=== PATIENT | female | born 1990 | race Caucasian/White ===

== ENCOUNTER 2019-12-28 16:50 | Inpatient (IN) | payer SELFPAY ==
[2019-12-28 17:18] VITALS: BMI 31.8
[2019-12-28] MEDS: Lactated Ringers 1,000 ML 50 ML IV (17:44)
[2019-12-28 18:14] LABS: Absolute Lymphocyte Count 1.72 X10^3/uL (0.83-4.51); Basophil# 0.02 X10^3/uL; Basophil% 0.2 % (0-1); Eosinophil# 0.02 X10^3/uL; Eosinophils% 0.2 % (0-5); Hematocrit 38.7 % (37-47); Hemoglobin 13.3 g/dL (12.0-15.0); Lymphocyte # 1.72 X10^3/ul (4.0); Lymphocyte % 16.4 % (19-41); Mean Corp Hgb Conc 34.4 g/dL (32-36); Mean Corpuscular Hgb 29.3 pg (27.0-32.0); Mean Corpuscular Volume 85.2 fL (81-99); Monocyte# 0.64 X10^3/uL; Monocyte% 6.1 % (0-10); NRBC Flagged by Analyzer 0 % (0-5); Neutrophil # 8.03 X10^3/uL (2.7-7.7); Neutrophil % 76.8 % (47-70); Platelet Count 262 K/mm3 (150-450); RBC Distribution Width CV 12.9 % (11.6-14.6); RBC Distribution Width SD 39.1 fl (35.1-43.9); Red Blood Count 4.54 M/mm3 (4.2-5.4); White Blood Count 10.5 K/mm3 (4.4-11.0)
[2019-12-28] MEDS: 0.9% Saline Lock 10 ML Syringe IV (19:13)
[2019-12-28] MEDS: Oxytocin 30 units/NS 500 ml 30 UNITS/500 ML IV.SOLN IV (20:05)
[2019-12-29] MEDS: fentaNYL 100 MCG/2 ML Ampul IV (00:24)
[2019-12-29] MEDS: Oxytocin 30 units/NS 500 ml 30 UNITS/500 ML IV.SOLN 334 UNITS IV (00:41)
--- NOTE | 2019-12-29 01:32 | PCM.HP.OB ---
- Problem List (1) Decreased movement Status: Acute (2) heart rate decelerations affecting management of mother Status: Acute History Date of Admission: 12/28/19 Final JOE: 12/30/19 Gestational age: 39 Weeks and 6 Days History of this : This is a 29 year-old, G 3P2 at 39 weeks gestational age presents referred by her photographer motion picture for decreased movement for the last 2 days and audible heart rate deceleration by the photographer motion picture at home. Patient has been 5 cm dilated but denies any regular contractions. She denies any vaginal bleeding or loss of fluid. She has had care by the [facility] photographer motion picture Mare Wilson but did have an ultrasound around 18 to 20 weeks that was normal and showed a boy. She has good dating that has been consistent with her LMP initial visit was at 10 weeks and was consistent with her LMP.. Allergies No Known Allergies Allergy (Verified 12/28/19 17:22) Home Medications: Home Medications Vits [Prenatabs FA] 1 tab PO DAILY 12/28/19 Smoking Status: Never smoker Alcohol: None Number of Fetus(es): 1 NST - FHR Rate Baby A Baseline: 120 Variability:: Moderate Accelerations:: 15 x 15 Decelerations:: None NST Reactive:: Yes FHR Category:: Category I Uterine Activity:: q 3-6 History Past Pregnancies: Past Pregnancies 2 previous term vaginal deliveries home births without complication Labs: Mom's Labs & Results 12/28/19 12/28/19 17:44 17:44 WBC 10.5 RBC 4.54 Hgb 13.3 Hct 38.7 MCV 85.2 MCH 29.3 MCHC 34.4 RDW Std Deviation 39.1 RDW Coeff of Shimon 12.9 Plt Count 262 MPV 10.0 Immature Gran % (Auto) 0.300 Neut % (Auto) 76.8 H Lymph % (Auto) 16.4 L Ford % (Auto) 6.1 Eos % (Auto) 0.2 Baso % (Auto) 0.2 Absolute Neuts (auto) 8.0 H Absolute Lymphs (auto) 1.72 Nucleated RBC % 0 Blood Type O POSITIVE Antibody Screen NEGATIVE Course Did the patient receive Yes care? Labs Blood Type: O RH: POSITIVE HbSAg Not Done Chlamydia Not Done Gonorrhea Not Done HIV/AIDS Not done Group B Strep: Positive Other Lab Procedures/Results/ Pt of Mare Wilson, photographer motion picture. Pt refused NPC labs; Comments: Dr. Woody aware and agreeable to refusal. Current Obstetrical History Gestational Diabetes No Incompetent Cervix No Infertility No IUGR No Macrosomia No Hypertension/Pre-eclampsia No Placenta Previa/Abruption No PTL/PROM No Uterine anomaly No Oligohydramnios No Polyhydramnios No Multiple gestation No Past Medical History Asthma No Diabetes No Hypertension No Heart disease No Mitral valve prolapse No Neurologic/Seizure disorder/ No Migraines Kidney disease No Liver disease No Varicosities No Clotting disorders/Hx of DVT No Thyroid Dysfunction No Other medical diseases No Psychiatric disorders No Major trauma No Abnormal PAP smear No Sleep apnea No Mammogram in the last 2 years No Social History Marital Status: Alleged father Lauro Hx Smoking No Smoking Status Never smoker Expected Infant Delivery Method: Spontaneous Vaginal Review of Systems Constitutional: Denies: Fever, Malaise Eyes: Denies: Blurred vision, Vision Change HEENT: Denies: Head Aches, Visual Changes Cardiovascular: Denies: Chest Pain, Palpitations Respiratory: Denies: Cough, Shortness of Breath, Wheezing Gastrointestinal: Denies: Abdominal Pain, Diarrhea, Nausea, Vomiting Genitourinary: Denies: Dysuria, Hematuria Musculoskeletal: Denies: Joint Pain, Muscle pain Skin: Denies: Lesions, Rash Neurological: Denies: Blurred vision, Focal weakness, Headaches Psychiatric: Denies: Anxiety, Depression Endocrine: Denies: Heat/ Cold Intolerance Hematologic/ Lymphatic: Denies: Easy Bruising, Easy Bleeding Physical Exam General: Alert, Cooperative, No apparent distress HEENT: Atraumatic, Normocephalic. Negative for: Thyromegaly, Lymphadenopathy Cardiovascular: Regular rate Lungs: Normal air movement Abdomen: Soft, Non Tender, Gravid Neurological: Deep Tendon Reflexes 2+/4 and Symmetrical, Neuro grossly intact. Negative for: Clonus CHEMICAL EDUCATOR: Normal external genitalia. Negative for: Vulvar lesions Estimated gestational size: Appropriate for gestational size Presentation: Cephalic Cervix Dilation (cm): 5 Station: -1 Effacement (%): 40 Assessment/Plan All Active Problems Decreased movement (Acute) heart rate decelerations affecting management of mother (Acute) This is a 29 year-old, , at 39 weeks gestational age presents with decreased movement and audible heart rate deceleration Patient presents IOL, plan management for , pitocin/AROM when needed. Pain management: Prefers minimal intervention. GBS positive will give penicillin and then start Pitocin after 2 hours of antibiotics. Management of any complications: None I have reviewed the [facility] and made any clinically relevant updates.
--- NOTE | 2019-12-29 01:37 | PCM.OPRPT ---
Problem List (1) Decreased movement Status: Acute (2) heart rate decelerations affecting management of mother Status: Acute Vaginal Delivery Maternal Presentation: Medically Indicated Induction 29-year-old G3, P2 at 39 weeks 5 days presents for induction of labor secondary to decreased movement and heart rate deceleration. Dating was based off of LMP which was consistent with first visit at 10 weeks of . Method of Induction: Pitocin Medical Reason for Induction: Compromise: list: - Decreased movement and heart rate deceleration Amniotic Membrane Rupture Type: Spontaneous Amniotic Fluid Description: Clear Final JOE: 12/30/19 Gestational age: 39 Weeks and 6 Days Date of Procedure: 12/29/19 Pre-Operative Diagnosis: iol dec Post-Operative Diagnosis: same Surgery/ Procedure Performed: Spontaneous Vaginal Delivery Type of Anesthesia: None Description of Procedure: Patient began pushing on hands and knees and delivered the head in the PARAG presentation. The head was delivered atraumatically and a loose nuchal cord ?1 was identified and easily reduced over the infant's head. After encouraging the anterior and posterior shoulders delivered without complication followed by the rest of the and the was placed on the maternal abdomen. Delayed cord clamping was employed for approximately 60 seconds. Cord was clamped and cut and gentle traction was applied to the cord and the placenta delivered spontan appropriate patient positioning to open up the pelvis eously immediately following it was noted to be intact with three-vessel cord. The perineum and vagina were inspected and noted to have no laceration. EBL was 400 cc. Patient and tolerated delivery well. Presentation: PARAG Placental Delivery Description: Spontaneous Placenta Disposition: [facility] Cord Vessel Description: 3 Vessels Nuchal Cord Compression: With compression Cord Entanglement: Around neck x 1, loose, True Knot(s), - - body cord x 1 Estimated Blood Loss: 400 A gender: Male Episiotomy Description: None Laceration: None Medications given after delivery: IV Pitocin Complications: None Multi Select Codes - Urinary/Genital Urinary/Genital CPT Codes: 11685 Vaginal Delivery [facility]
--- NOTE | 2019-12-29 01:42 | DCINST_ITS ---
Discharge Diet: No Restrictions Discharge Activity: Return to Normal Activity, May not drive while taking narcotic pain medications., May Shower May resume sexual activity in: 4-6 weeks Call your doctor if your incision/area has: Continuous Slow Oozing, Sudden Increased Bleeding, Increased Pain/ Swelling, Increased Redness, Foul Smelling Discharge Additional Instructions: If you experience any of the following, contact your healthcare provider. * Bleeding that soaks a pad every hour for 2 hours * Fever 100.4 or higher * Unrelieved incision or abdominal pain * Swelling, redness, discharge or bleeding from your incision or episiotomy site * Your incision begins to separate * Problems urinating (including inability to urinate or burning while urinating). * Visual changes * Severe headache * Flu-like symptoms * Pain or redness in one of both of your breasts * Pain, warmth, tenderness or swelling in your legs, especially the calf area * Frequent nausea and vomiting * Symptoms of depression or anxiety If you experience any of the following, call 911 or go to the nearest Emergency Room. * Chest pain * Problems breathing * Seizure activity * Partial or complete paralysis of a body part, slurred speech, weakness or drooping of the face, or a sudden inability to walk or hold your balance Allergies/Adverse Reactions: Allergies No Known Allergies Allergy (Verified 12/28/19 17:22) Medications to take at Discharge Vits [Prenatabs FA] 1 tab PO DAILY 12/28/19 Please Follow Up With: Elizabeth Woody MD - [phone] When: Call to make an appointment with your doctor in 6 weeks. If you had elevated Blood pressure or 4th degree laceration you will need to be seen in 2 weeks. Primary Care Physician: Care Physician,No Primary [Primary Care Provider] - Test Results: Test results from this visit will be discussed in further detail at your follow- up appointment, if applicable.
--- NOTE | 2019-12-29 01:42 | PCM.DCVAG ---
Discharge Diet: No Restrictions Discharge Activity: Return to Normal Activity, May not drive while taking narcotic pain medications., May Shower May resume sexual activity in: 4-6 weeks Call your doctor if your incision/area has: Continuous Slow Oozing, Sudden Increased Bleeding, Increased Pain/ Swelling, Increased Redness, Foul Smelling Discharge Additional Instructions: If you experience any of the following, contact your healthcare provider. Bleeding that soaks a pad every hour for 2 hours Fever 100.4 or higher Unrelieved incision or abdominal pain Swelling, redness, discharge or bleeding from your incision or episiotomy site Your incision begins to separate Problems urinating (including inability to urinate or burning while urinating). Visual changes Severe headache Flu-like symptoms Pain or redness in one of both of your breasts Pain, warmth, tenderness or swelling in your legs, especially the calf area Frequent nausea and vomiting Symptoms of depression or anxiety If you experience any of the following, call 911 or go to the nearest Emergency Room. Chest pain Problems breathing Seizure activity Partial or complete paralysis of a body part, slurred speech, weakness or drooping of the face, or a sudden inability to walk or hold your balance Allergies/Adverse Reactions: Allergies No Known Allergies Allergy (Verified 12/28/19 17:22) Medications to take at Discharge Vits [Prenatabs FA] 1 tab PO DAILY 12/28/19 Please Follow Up With: Elizabeth Woody MD - [phone] When: Call to make an appointment with your doctor in 6 weeks. If you had elevated Blood pressure or 4th degree laceration you will need to be seen in 2 weeks. Primary Care Physician: Care Physician,No Primary [Primary Care Provider] - Test Results: Test results from this visit will be discussed in further detail at your follow-up appointment, if applicable.
[2019-12-29] MEDS: Naproxen 250 MG Tablet 500 MG PO ×2 (02:55→10:54)
[2019-12-29] MEDS: 0.9% Saline Lock 10 ML Syringe IV (03:22)
[2019-12-29 04:20] VITALS: BP 118/64; PULSE 73; RESP 20; TEMP 36.3; O2SAT 98
[2019-12-29 08:03] VITALS: BP 115/64; PULSE 73; RESP 16; TEMP 36.6; O2SAT 99
[2019-12-29 08:27] VITALS: BP 113/65; PULSE 83; RESP 16; TEMP 37.1; O2SAT 97
[2019-12-29 09:41] LABS: Hepatitis B Surface Antigen Non-Reactive (Nonreactive); Rubella IgG 112.3 IU/mL
[2019-12-29 12:11] VITALS: BP 115/64; PULSE 73; RESP 16; TEMP 36.6; O2SAT 99
== END 2019-12-29 13:00 | disposition home or self-care (01) | DRG 807 ==
PROVIDERS: Admitting Provider Obstetrics & Gynecology; Referring Provider Obstetrics & Gynecology; Visit Provider Obstetrics & Gynecology
DX: O36.8130 Decreased fetal movements, third trimester, not applicable or unspecified (principal); Z37.0 Single live birth; O76 Abnormality in fetal heart rate and rhythm complicating labor and delivery; Z3A.39 39 weeks gestation of pregnancy; O99.824 Streptococcus B carrier state complicating childbirth; O69.2XX0 Labor and delivery complicated by other cord entanglement, with compression, not applicable or unspecified; O69.81X0 Labor and delivery complicated by cord around neck, without compression, not applicable or unspecified
CPT/HCPCS: 59025; 59050; 85025; 86762; 86850; 86900; 86901; 87340; 99218; J7120; A4216; G0378

== ENCOUNTER 2022-01-21 19:59 | Emergency (ER) | payer OTHER, SELFPAY ==
[2022-01-21 20:00] VITALS: BP 117/75; PULSE 86; RESP 16; TEMP 37; O2SAT 97; BMI 29.2
--- NOTE | 2022-01-21 20:56 | US_ITS ---
STUDY: FIRST TRIMESTER OBSTETRICAL ULTRASOUND REASON FOR EXAM: Female, 31 years old preg and vaginal bleeding -- patient refused quant LMP: 11/24/2021 TECHNIQUE: Transabdominal and endovaginal TECHNICAL QUALITY: Adequate. PRIOR ULTRASOUND: None. FINDINGS: There is no visualization of an intrauterine gestational sac. The uterus measures 10.0 x 8.3 x 5.5 cm. It is retrograded. There is a 7 x 9 x 8 mm fibroid. Thickened endometrium measuring 19 mm with heterogeneity and possible focal fluid. The cervix is closed. The right ovary measures 2.7 x 1.7 x 1.4 cm. There is no right ovarian cyst. There is no visualized right adnexal mass or complex lesion. The left ovary measures 3.8 x 2.2 x 3.0 cm. There is no left ovarian cyst. There is no visualized left adnexal mass or complex lesion. There is no fluid in the cul de sac. US/Init OB < 14Wks US IMPRESSION: No intrauterine gestational sac is identified. There is thickened endometrium with heterogeneity and possible mild focal fluid. Electronically Signed: Hudson Ramos DO at 23:20 EST Reading Location ID and State: [facility] / [place] Tel [phone], Service support ,
--- NOTE | 2022-01-21 20:57 | ED.VIS.FEGU ---
HPI HPI - Female History of Present Illness Chief Complaint: Vag Bld, Preg Informant: patient Pain Pain: Positive for Pelvic Pain Onset: Today Context: Gradual Onset Timing: Intermittent Quality: Positive for Cramping Current Severity: Mild Maximum Severity: Mild Bleeding Issue: Positive for Vaginal bleeding, Passing clots and Passing tissue Onset: Today Timing: Intermittent Current Severity: Mild Maximum Severity: Heavy Associated Symptoms Test: Positive Sexually: Positive for Active Control: No control P: 3 Ab: 0 Narrative Narrative: 31-year-old female G4, P3 Ab0. Think she is somewhere between 8 and 12 weeks . Her blood type is O+. She had no care for this . States that she has had spotting the entire time and then today started having heavier bleeding with clots. At times she would have pelvic pain and other times the pain would resolve. She thinks she may have passed tissue. She was concerned she was having a miscarriage. Denies any dysuria. No fever. Prior similar symptoms: No Recent Illness/Hospitalization: No PFSH PFSH Medical History no medical history no medical history Home Medications vit,[id number] 1 tab PO DAILY 12/28/19 [History Last Taken 12/27/19 18:00 1 tab] Allergy/AdvReac Type Severity Reaction Status Date / Time No Known Allergies Allergy Verified 01/21/22 20:06 Surgical History no surgical history no surgical history Social History Smoking Status: Never smoker ROS ROS ED ROS Narrative Denies. Review of Systems ROS Unobtainable: Denies due to encephalopathy Constitutional Constitutional ED: Denies fever(s) Eyes Eyes: Denies change in vision ENT ENT ED: Denies ear pain Cardiovascular Cardiovascular: Denies chest pain Respiratory/Chest Respiratory/Chest: Denies dyspnea Gastrointestinal Gastrointestinal: Denies abdominal pain Genitourinary Genitourinary ED: Denies dysuria Musculoskeletal Musculoskeletal: Denies myalgias Integumentary Denies rash Neurologic Neurologic: Denies headache(s) Psychiatric Psychiatric: Denies depression Endocrine Endocrinology: Denies polyuria Hematologic/Lymphatic Hematologic/Lymphatic: Denies easy bruising Allergic/Immunologic Allergic/Immunologic ED: Denies urticaria EXAM Physical Exam Narrative Exam Narrative: 31-year-old female no acute distress vital signs stable afebrile. Lungs are clear. Heart regular rhythm. Abdomen soft nondistended normal bowel sounds no peritoneal signs. Minimal discomfort suprapubically. Moving all 4 extremities. Pelvic exam pending. Const Vital Signs: 01/21/22 20:00 01/21/22 22:32 Temperature 98.6 F Temperature Source Temporal Pulse Rate 86 66 Respiratory Rate 16 14 Blood Pressure 117/75 115/78 Blood Pressure Mean 89 90 Pulse Ox 97 98 Oxygen Delivery Method Room Air Room Air Positive well nourished and well developed; Negative for obese, cachectic, contractures or unkempt General Appearance ED: well developed and NAD; Negative for unkempt, cachectic, contractures, odor of alcohol detected or pallor Nutritional Appearance: Negative for cachectic or obese HEENT Reports moist mucous membranes Negative for trauma or tenderness Eyes PERRL and EOMs intact bilaterally General Eye ED: Negative for pale conjunctiva or scleral icterus Neck no lymphadenopathy, supple and no JVD Thyroid: Negative for tender Chest Wall inspection of chest normal and palpation of chest normal Resp normal respiratory effort and clear to auscultation bilaterally Effort and Inspection: Negative for pain with movement Auscultation: Negative for rales, rhonchi or wheezes Cardio regular rate, regular rhythm, S1 normal heart sound, no murmurs and no JVD GI normal to inspection, nondistended, normoactive bowel sounds, soft to palpation, non-tender, non-distended and no masses Auscultation: normoactive bowel sounds Palpation: Negative for tender, guarding or rigid no CVA tenderness Back/Spine no CVA tenderness Extremity normal to inspection and full ROM General Extremety ED: Negative for edema or tenderness General Extremity: Negative for edema Neuro oriented x3 Sensorium / Orientation: alert, oriented to person, oriented to place and oriented to time Motor Exam: strength 5/5 throughout Psych mental status grossly normal Appearance: Negative for unkempt Mood & Affect: Negative for depressed or tearful Skin no rashes or lesions noted and no wounds General Skin Exam: Negative for jaundice or pallor MDM MDM MDM Narrative Medical decision making narrative: 31-year-old G4, P3 Ab0. 8 to 12 weeks . No care. Blood type O+. Concern for miscarriage. Having heavy bleeding today. Wants, pelvic exam, a liter of normal saline and a pelvic ultrasound. Pelvic exam done female nurse present in room. There is only minimal bleeding at this time there is a clot in the cervix. I do not see any tissue. On bimanual exam there is no uterine or adnexal tenderness. We were ordering labs, IV and IV fluids patient did not want any that done she does want the ultrasound. She understands limitations about the studies. She is being taken ultrasound at this time. Repeat exam patient is doing well at 11:19 PM. Her and her do not want to wait for the formal ultrasound read. They were instructed to follow-up as soon as possible with IN PROCESS INSPECTOR physician for further evaluation. If she continues to bleed, increasing pain or fever she needs immediate reevaluation. Tylenol Motrin for pain. Plenty of fluids and rest. Return emergency department if feeling worse. Lab Data Attestation: I reviewed the patient's lab results. Radiography Diagnostic Testing: Transvaginal pelvic ultrasound per the microwave technician shows no intrauterine . No ectopic. Heterogeneous fluid in the uterus. Discharge Plan Triage Chief Complaint: Vag Bld, Preg ED Provider: Ham Petit Dx/Rx/DC Orders Clinical Impression: Abnormal vaginal bleeding, Incomplete miscarriage Instructions: ED MISCARRIAGE Incomplete Prescriptions: No Action vit,[id number] 1 TABLET tablet 1 tab PO DAILY RF: 0 Primary Care Provider: Care Physician,No Primary Referrals: Leon Jeong MD [STAFF PHYSICIAN] - As soon as possible Care Physician,No Primary [Primary Care Provider] - Activity Restrictions/Additional Instructions: Plenty of fluids and rest. This will help replace the blood loss. Motrin and Tylenol for pain. Follow-up with your nurse end worker or Dr. Leon Jeong the IN PROCESS INSPECTOR on-call tonight. We need to make sure that the bleeding slows down. Also that you do not have any retained products that could cause increased bleeding or an infection. Return the emergency department if you are feeling worse or develop a fever or develop increasing pain. You will probably have continued bleeding but that should progressively improve. Disposition Disposition: Home, Self Care
--- NOTE | 2022-01-21 21:11 | ED.RN ---
pt. refuses iv, blood work, states just wants ultrasound and to go home. dr. smith aware.
[2022-01-21 22:32] VITALS: BP 115/78; PULSE 66; RESP 14; O2SAT 98
== END 2022-01-21 23:25 | disposition home or self-care (01) ==
PROVIDERS: Emergency Provider Emergency Medicine; Visit Provider Emergency Medicine
DX: O03.4 Incomplete spontaneous abortion without complication (principal)
CPT/HCPCS: 76801; 99282

== ENCOUNTER 2022-01-29 06:21 | Emergency (ER) | payer OTHER, SELFPAY ==
[2022-01-29 06:21] VITALS: BP 126/77; PULSE 98; RESP 18; TEMP 36.6; O2SAT 100; BMI 24.5
--- NOTE | 2022-01-29 06:46 | US_ITS ---
STUDY: FIRST TRIMESTER OBSTETRICAL ULTRASOUND REASON FOR EXAM: Female, 31 years old pelvic pain and bleeding SCANNED 01/21/22 FOR BLEEDING WITH , SUBSIDED AND STARTED BLEEDING AGAIN WITH CLOTS. PELVIC PAIN AND CRAMPING LMP: November 24, 2021 TECHNIQUE: Transabdominal and Transvaginal TECHNICAL QUALITY: Adequate. PRIOR ULTRASOUND: OB ultrasound dated January 21, 2022 FINDINGS: There is no demonstrated intrauterine gestational sac. There is no demonstrated yolk sac. The placenta is non-visualized. There is no demonstrated embryo ( pole). The uterus measures 11.0 x 6.7 x 5.8 cm. A tiny anterior uterine body intramural fibroid is present measuring 7 mm in diameter. The endometrial echo is hyperechoic and measures 15 mm in thickness. No endometrial fluid is present. The cervix is closed. The right ovary measures 2.5 x 2.4 x 1.8 cm. There is no right ovarian cyst. There is no visualized right adnexal mass or complex lesion. The left ovary measures 2.8 x 2.7 x 1.6 cm. There is no left ovarian cyst. There is no visualized left adnexal mass or complex lesion. There is no fluid in the cul de sac. US/Init OB < 14Wks US IMPRESSION: 1. No demonstrated IUP Electronically Signed: Clint Marcelo MD at 9:07 EDT ,
--- NOTE | 2022-01-29 06:53 | EDS_ITS ---
HPI HPI - Female History of Present Illness Chief Complaint: Vag Bleeding Narrative Narrative: Patient is reported female who was seen a week ago secondary to concern of miscarriage. At that time she had an ultrasound pain which showed no gestational sac with in the uterus. She states that her bleeding started to subside since that visit but then returned over the last day to a heavy flow and she is noted increased lower abdominal pain as well. She states that she is not on blood thinners nor does she have a bleeding disorder. However with her worsening bleeding once again and the lower abdominal pain she was concerned and therefore comes in for evaluation. PFSH PFSH Home Medications vit,[id number] 1 tab PO DAILY 12/28/19 [History Last Taken 12/27/19 18:00 1 tab] tranexamic acid 650 mg PO BID PRN #10 tab 01/29/22 [Rx Last Taken Unknown] Allergy/AdvReac Type Severity Reaction Status Date / Time No Known Allergies Allergy Verified 01/29/22 06:26 Surgical History no surgical history Social History Smoking Status: Never smoker ROS ROS ED Constitutional Constitutional ED: Denies chills or fever(s) ENT ENT ED: Denies sore throat Cardiovascular Cardiovascular: Denies chest pain Respiratory/Chest Respiratory/Chest: Denies cough or dyspnea Gastrointestinal Gastrointestinal: Reports abdominal pain and nausea; Denies diarrhea or vomiting Genitourinary Genitourinary ED: Reports other Details: Positive vaginal bleeding ; Denies dysuria Musculoskeletal Musculoskeletal: Denies myalgias Integumentary Denies rash Neurologic Neurologic: Denies headache(s) Hematologic/Lymphatic Hematologic/Lymphatic: Denies easy bleeding or easy bruising EXAM Physical Exam Const Vital Signs: 01/29/22 06:21 01/29/22 07:23 Temperature 97.9 F 98.0 F Temperature Source Temporal Oral Pulse Rate 98 76 Respiratory Rate 18 18 Blood Pressure 126/77 H 107/68 Blood Pressure Mean 93 81 Pulse Ox 100 100 Oxygen Delivery Method Room Air Room Air Positive well nourished and well developed General Appearance ED: well developed HEENT Reports moist mucous membranes Eyes PERRL and EOMs intact bilaterally General Eye ED: Negative for pale conjunctiva Neck supple Resp normal respiratory effort and clear to auscultation bilaterally Cardio regular rate and regular rhythm GI soft to palpation and non-distended GI Narrative: Patient has a soft nondistended abdomen with pain with palpation diffusely in the lower abdomen without voluntary guarding or rigidity. There is a ventral hernia that is reducible in nature. No pulsatile mass Auscultation: normoactive bowel sounds Palpation: soft Narrative: Patient deferred pelvic exam Extremity normal to inspection Neuro oriented x3 and CN's II-XII intact bilaterally Sensorium / Orientation: alert Psych mental status grossly normal Skin no rashes or lesions noted Skin Narrative: Skin is slightly pale in color but capillary refill is less than 3 seconds MDM MDM MDM Narrative Medical decision making narrative: Patient presented to the ER afebrile with stable vitals. She had a ultrasound done just approximately week ago which showed a fibroid but no products of conception. She reported her bleeding never completely resolved but was improving and then began to have breakthrough bleeding today. Secondary to this breakthrough bleeding I did elect to obtain basic laboratory studies which patient refused to the last visit and repeat an ultrasound. H&H is slightly down at 11 and 30 but this is above transfusion value and the previous value was just above this at 13. She has no signs of acute kidney injury no leukocytosis and stable liver enzymes with no elevated lipase. The patient refused a pelvic exam as she had one last time and states that she feels like she is no longer actively bleeding. Therefore at this time with stable labs no need for transfusion and no persistent bleeding I do not feel she needs to stay in the hospital and can follow-up with [facility] for repeat evaluation I was able to discuss the case with [facility] and they do request that patient have a quantitative hCG value drawn today so they can have a laboratory value to track over the next few weeks. They agree that as she is hemodynamically stable not requiring a transfusion that she can be discharged home and recommend that she have a few TXA tablets in case she has recurrent breakthrough bleeding. Lab Data Attestation: I reviewed the patient's lab results. Labs: Laboratory Results - last 24 hr 01/29/22 01/29/22 01/29/22 06:30 06:30 06:30 WBC 8.1 RBC 3.64 L Hgb 11.2 L Hct 30.0 L MCV 82.4 MCH 30.8 MCHC 37.3 H RDW Std Deviation 36.2 RDW Coeff of Shimon 12.3 Plt Count 336 MPV 9.8 Immature Gran % (Auto) 0.500 Neut % (Auto) 86.3 H Lymph % (Auto) 9.4 L [place] % (Auto) 3.5 Eos % (Auto) 0.2 Baso % (Auto) 0.1 Absolute Neuts (auto) 6.9 Absolute Lymphs (auto) 0.76 L Nucleated RBC % 0 Sodium 138 Potassium 3.6 Chloride 107 Carbon Dioxide 27.0 Anion Gap 4 L BUN 11 Creatinine 0.54 L Estim Creat Clear Calc 170.26 Est GFR (MDRD) Af Amer 169 Est GFR (MDRD) Non-Af 140 BUN/Creatinine Ratio 20.3 H Glucose 113 H Calcium 8.4 L Total Bilirubin 1.50 H Direct Bilirubin 0.26 AST 16 ALT 29 Alkaline Phosphatase 48 Total Protein 7.3 Albumin 3.9 Globulin 3.4 Lipase 125 Urine Color Urine Clarity Urine pH Ur Specific Simpson Urine Protein Urine Glucose (UA) Urine Ketones Urine Occult Blood Urine Nitrite Urine Bilirubin Urine Urobilinogen Ur Leukocyte Esterase Urine RBC Urine WBC Ur Squamous Epith Cells Urine Bacteria Urine Mucus Blood Type O POSITIVE 01/29/22 08:35 WBC RBC Hgb Hct MCV MCH MCHC RDW Std Deviation RDW Coeff of Shimon Plt Count MPV Immature Gran % (Auto) Neut % (Auto) Lymph % (Auto) [place] % (Auto) Eos % (Auto) Baso % (Auto) Absolute Neuts (auto) Absolute Lymphs (auto) Nucleated RBC % Sodium Potassium Chloride Carbon Dioxide Anion Gap BUN Creatinine Estim Creat Clear Calc Est GFR (MDRD) Af Amer Est GFR (MDRD) Non-Af BUN/Creatinine Ratio Glucose Calcium Total Bilirubin Direct Bilirubin AST ALT Alkaline Phosphatase Total Protein Albumin Globulin Lipase Urine Color Yellow Urine Clarity Clear Urine pH 7.0 Ur Specific Simpson 1.005 Urine Protein 30 H Urine Glucose (UA) Normal Urine Ketones Negative Urine Occult Blood 250 H Urine Nitrite Negative Urine Bilirubin Negative Urine Urobilinogen Normal Ur Leukocyte Esterase 100 H Urine RBC 5-10 SEEN Urine WBC 0-5 SEEN Ur Squamous Epith Cells 0-5 SEEN Urine Bacteria 1+ Urine Mucus 0 SEEN Blood Type Radiography Diagnostic Testing: Clinical Impression(s) from Imaging Studies Obstetrics Ultrasound 01/29/22 06:46 IMPRESSION: 1. No demonstrated IUP Electronically Signed: Clint Marcelo MD at 9:07 EDT , Discharge Plan Triage Chief Complaint: Vag Bleeding ED Provider: Arturo Darden Dx/Rx/DC Orders Clinical Impression: DUB (dysfunctional uterine bleeding) Prescriptions: New tranexamic acid 650 mg tablet 650 mg PO BID PRN (Reason: Breakthrough bleeding) Qty: 10 RF: 0 No Action vit,[id number] 1 TABLET tablet 1 tab PO DAILY RF: 0 Primary Care Provider: Hernandez Solano Referrals: Jacklyn Logan MD [STAFF PHYSICIAN] - 5-7 Days Hernandez Solano, PA-C [Primary Care Provider] - Activity Restrictions/Additional Instructions: Please follow-up with [facility] for repeat evaluation and take the medication prescribed if you have any further breakthrough bleeding Disposition Disposition: Home, Self Care
[2022-01-29 07:10] LABS: Absolute Lymphocyte Count 0.76 X10^3/uL (0.83-4.51); Absolute Neutrophil Count 6.9 X10^3/uL (2.0-7.7); Basophil# 0.01 X10^3/uL; Basophil% 0.1 % (0-1); Eosinophil# 0.02 X10^3/uL; Eosinophils% 0.2 % (0-5); Hemoglobin 11.2 g/dL (12.0-15.0); Lymphocyte # 0.76 X10^3/ul (0.83-4.51); Lymphocyte % 9.4 % (19-41); Mean Corp Hgb Conc 37.3 g/dL (32-36); Mean Corpuscular Hgb 30.8 pg (27.0-32.0); Mean Corpuscular Volume 82.4 fL (81-99); Mean Platelet Vol. 9.8 fl (6.2-12.0); Monocyte# 0.28 X10^3/uL; Monocyte% 3.5 % (0-10); NRBC Flagged by Analyzer 0 % (0-5); Neutrophil # 6.94 X10^3/uL (2.7-7.7); Neutrophil % 86.3 % (47-70); Platelet Count 336 K/mm3 (150-450); RBC Distribution Width CV 12.3 % (11.6-14.6); RBC Distribution Width SD 36.2 fl (35.1-43.9); Red Blood Count 3.64 M/mm3 (4.2-5.4); White Blood Count 8.1 K/mm3 (4.4-11.0)
[2022-01-29] MEDS: 0.9% Normal Saline 1,000 ML 999 ML IV (07:12)
[2022-01-29] MEDS: Ondansetron 4 MG/2 ML Vial IV (07:12)
[2022-01-29 07:23] VITALS: BP 107/68; PULSE 76; RESP 18; TEMP 36.7; O2SAT 100
[2022-01-29 07:30] LABS: AST(SGOT) 16 U/L (15-37); Alanine Aminotransfer ALT/SGPT 29 U/L (13-56); Albumin, Serum 3.9 g/dL (3.2-5.0); Alkaline Phosphatase 48 U/L (45-117); Anion Gap 4 (5-15); BUN 11 mg/dL (7-18); BUN/Creat Ratio 20.3 RATIO (10-20); Bilirubin, Direct 0.26 mg/dL (0.00-0.30); Calcium,Total 8.4 mg/dL (8.5-10.1); Chloride 107 mmol/L (98-107); Creatinine, Serum 0.54 mg/dL (0.55-1.02); EST Glomerular Filtration Rate 140 mL/min (>60); Est Glom Filt Rate - Afr Amer 169 mL/min (>60); Estimated Creatinine Clearance 170.26 ml/min; Globulin 3.4 g/dL (2.2-4.2); Glucose 113 mg/dL (74-106); Lipase 125 U/L (73-393); Potassium 3.6 mmol/L (3.5-5.1); Protein, Total 7.3 g/dL (6.4-8.2); Sodium Level 138 mmol/L (136-145)
[2022-01-29 08:44] LABS: Mucous, Urine 0 SEEN /hpf (<or=2+)
[2022-01-29 08:47] LABS: Color, Urine Yellow (Yellow); Glucose, Dipstick Normal (Normal); Ketone-Dipstick Negative (Negative); Leukocyte Esterase-Dipstick 100 /ul (Negative); Nitrite-Dipstick Negative (Negative); Occult Blood-Urine 250 /ul (Negative); Protein-Dipstick 30 mg/dl (Negative); Specific Gravity, Urine 1.005 (1.002-1.030); Urine Bilirubin Dipstick Negative (Negative); Urine Clarity Clear (Clear); Urine Urobilinogen Normal (Normal)
[2022-01-29 08:54] LABS: Bacteria 1+ /hpf (None Seen); Red Blood Cells-Urine 5-10 SEEN /hpf (0-5); Squamous Epithelial Cells - UA 0-5 SEEN /hpf (5-10); White Blood Cells 0-5 SEEN /hpf (0-5)
[2022-01-29 09:00] VITALS: BP 117/74; PULSE 90; RESP 16; TEMP 36.7; O2SAT 100
[2022-01-29] MEDS: Ketorolac 30 MG/ML Syringe IV (09:58)
[2022-01-29 10:00] VITALS: BP 108/59; PULSE 86; RESP 16; TEMP 36.8; O2SAT 100
[2022-01-29 10:46] LABS: hCG Titer Quant., Serum 314 mIU/mL (1-3)
[2022-01-29 11:00] VITALS: BP 136/78; PULSE 66; RESP 16; TEMP 36.7; O2SAT 99
[2022-01-29 11:23] VITALS: BP 136/78; PULSE 68; RESP 16; TEMP 36.7; O2SAT 98
== END 2022-01-29 11:27 | disposition home or self-care (01) ==
PROVIDERS: Emergency Provider Emergency Medicine; PCP Physician Assistant; Visit Provider Emergency Medicine
DX: N93.8 Other specified abnormal uterine and vaginal bleeding (principal)
CPT/HCPCS: 76801; 80048; 80076; 81001; 83690; 84702; 85025; 86900; 86901; 96361; 96374; 96375; 99283; J7040; J2405

== ENCOUNTER 2025-04-25 05:40 | Outpatient (CLI) | payer OTHER, SELFPAY ==
[2025-04-25 05:45] VITALS: BMI 32.5
--- OUTSIDE RECORDS SUMMARY | 2025-04-25 05:46 | XMS RPT_ITS | CCD ---
Author Organization [facility] Care Team Providers Care Product Assembler Name Role Phone Aye Pimentel Primary Care Provider AYE MAZARIEGOS Primary Care Unavailable RHONDA JEFFRIES Referring Unavailable RHONDA JEFFRIES Attending Unavailable RHONDA JEFFRIES Admitting Unavailable PETTY MCBRIDE Attending Unavailable PETTY MCBRIDE Admitting Unavailable Unavailable Primary Care Provider Unavailabl e Medications Current Medications Medication Drug Class(es) Dates Sig (Normalized) Sig (Original) MV-Min-Fe Fum-FA-DHA ( 1 PO) (1 source) MV-Min- Fe Fum-FA-DHA ( 1 PO) Take by mouth. 0 Active Completed/Discontinued Medications Medication Drug Class(es) Dates Sig (Normalized) Sig (Original) acetaminophen 325 mg oral tablet (2 sources) Start: 01-09-2023 End: 01-10-2023 take 1 tablet by mouth every four hours as needed for pain 650 mg, Oral, Every 4 hours PRN, mild pain (1-3), Fever GREATER than 100.5 F (38 C), Starting on Sat01/09/23 at 1411 Maximum dose of acetaminophen is 4000 mg from all sources in 24 hours. calcium chloride 0.0014 meq/ml / potassium chloride 0.004 meq/ml / sodium chloride 0.103 meq/ml / sodium lactate 0.028 meq/ml injectable solution (2 sources) Start: 01-09-2023 End: 01-10-2023 lactated Ringer's infusion cyclobenzaprine hydrochloride 10 mg oral tablet (1 source) Muscle Relaxant Start: 01-09-2023 End: 01-09-2023 Cyclobenzaprine (FLEXERIL) tablet 10 mg 1 ml morphine sulfate 4 mg/ml cartridge (1 source) Opioid Agonist Start: 01-09-2023 End: 01-09-2023 Morphine sulfate (PF) injection 4 mg ondansetron ODT (Zofran-ODT) disintegrating tablet 4 mg (2 sources) Start: 01-09-2023 End: 01-10-2023 take 1 tablet by mouth every eight hours as needed for nausea and vomiting ondansetron ODT (Zofran-ODT) disintegrating tablet 4 mg oxyCODONE hydrochloride 5 mg oral tablet (2 sources) Opioid Agonist Start: 01-09-2023 End: 01-10-2023 take 1 tablet by mouth every six hours as needed for pain and pain oxyCODONE (Roxicodone) immediate release tablet 5 mg vitamin tablet (2 sources) Start: 01-09-2023 End: 01-10-2023 take 1 tablet by mouth once daily 1 tablet, Oral, Daily, First dose on Sat01/09/23 at 1430 5 ml sodium chloride 9 mg/ml injection (6 sources) Start: 01-09-2023 End: 01-10-2023 10 mL, IntraVENous, Every 12 hours scheduled (2 times per day), First dose on Sat01/09/23 at 2100 Start: 01-09-2023 End: 01-10-2023 5-250 mL/hr, IntraVENous, AL N, if patient receiving piggyback infusions and maintenance fluids are not ordered OR KVO fluids to protect IV site / prevent frequent line interruptions/ long duration, Starting on Sat01/09/23 at 1411 For piggyback infusion, administer at same rate as piggyback for a total of 25 mL. Enter 25 mL into dose field and piggyback rate into rate field of order. If piggyback is infusing at a rate less than 100 mL/hr, enter 25 mL into dose field and 100 mL/hr into rate field of order. For KVO fluids, enter rate of 20 mL/hr or less into rate field of order. Start: 01-09-2023 End: 01-10-2023 take 10 mL intravenously once 10 mL, IntraVENous, PRN, line care, Starting on Sat01/09/23 at 1411 After every IV line use tamsulosin hydrochloride 0.4 mg oral capsule (2 sources) alpha-Adrenergic José Manuel Start: 01-09-2023 End: 02-23-2023 take 0.4 mg by mouth once daily 0.4 mg, Oral, Daily, First dose on Sat01/09/23 at 1530 Do not crush, chew, or split. Problems Problem Classification Problem Date Documented Da sheryl Episodic/Chronic Calculus of urinary tract (6 sources) Calculus of kidney; Translations: [Kidney stone] Onset: 01-09-2023 Episodic Spondylosis; intervertebral disc disorders; other back problems (2 sources) Low back pain; Translations: [Lower Back Pain] Onset: 01-09-2023 Episodic Results Test Name Value Interpretation Reference Range Facility Progress Noteon 01-10-2023 Progress Note Pt insisting on leaving at this time. 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 Discharge instructions given to pt. Instructed pt when to return to labor and delivery. Questions and concerns addressed. Pt signed AMA form with explanation provided. Pt discharged to home with in stable ambulatory undelivered condition. Pt states pain is stable. Dr. Virgen notified of pt discharge. Normal [facility] Progress Note Attestation signed by Petty Mcbride MD at 01/10/2023 5:14 PM MFM ATTENDING Patient signed out AMA prior to morning rounds. Patients pain reportedly completely resolved. Maternal Medicine Service Resident Progress Note 01/10/2023 5:38 AM 01/09/2023 Hospital Day: 2 Dominique Azar, 32 y.o. 31w2d Patient has been seen and examined. Patient was in the shower when I was bedside, available for questions. He states that she was feeling much better overnight, able to sleep and press on her back without pain. He states that she has had no nausea or vomiting, they are hopeful they can go home this morning. Vitals: 01/09/23 1407 01/09/23 2229 BP: 93/52 Pulse: 84 Resp: 16 Temp: 37 ?C (98.6 ?F) 36.7 ?C (98 ?F) TempSrc: Oral Oral Weight: 190 lb (86.2 kg) Height: 5' 6 (1.676 m) Cat I with moderate variability and spon accels. Contractions: none Physical Exam: Patient in shower when bedside, could not perform exam. Medications: Current Facility-Administere d Medications Medication Dose Route Frequency Provider Last Rate Last Admin acetaminophen (Tylenol) tablet 650 mg 650 mg Oral q4h PRN Deb Castellon, DO lactated Ringer's infusion 125 mL/hr IntraVENous Continuous Deb Cande, DO 125 mL/hr at 01/09/23 1446 125 mL/hr at 01/09/23 1446 ondansetron ODT (Zofran-ODT) disintegrating tablet 4 mg 4 mg Oral q8h PRN Deb Castellon, DO Or ondansetron (Zofran) injection 4 mg 4 mg IntraVENous q6h PRN Deb Castellon, DO oxyCODONE (Roxicodone) immediate release tablet 5 mg 5 mg Oral q6h PRN Dayna Virgen, DO 5 mg at 01/09/23 1920 vitamin tablet 1 tablet Oral Daily Debearl Castellon, DO sodium chloride 0.9 % infusion 5-250 mL/hr IntraVENous PRN Debpete Castellon, DO sodium chloride 0.9% (NS) flush 10 mL 10 mL IntraVENous 2 times per day Debearl Castellon, DO sodium chloride 0.9% (NS) flush 10 mL 10 mL IntraVENous PRN Deb Cande, DO tamsulosin (Flomax) 24 hr capsule 0.4 mg 0.4 mg Oral Daily Deb Cande, DO 0.4 mg at 01/09/23 1657 Assessment/Plan: Dominique Azar is a 32 y.o. 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 DEB CASTELLON, DO 01/10/2023, 5:38 AM Normal [facility] CBCon 01-09-2023 ABSOLUTE BAS 0.0 10*3/uL Normal 0.0-0.2 [facility] Comment on above: Performed By: #### A CBC #### Testing performed at [address] [address] ABSOLUTE EOS 0.0 10*3/uL Normal 0.0-0.7 [facility] Comment on above: Performed By: #### A CBC #### Testing performed at [address] [address] ABSOLUTE NEUTROPHIL COUNT 8.7 10*3/uL High 1.4-6.5 [facility] Comment on above: Performed By: #### A CBC #### Testing performed at [address] [address] Basophils/100 WBC (Bld) 0.1 % Normal 0.0-2.0 [facility] Comment on above: Performed By: #### A CBC #### Testing performed at [address] [address] DTYPE AUTO DIFF Normal [facility] Comment on above: Performed By: #### A CBC #### Testing performed at [address] [address] Eosinophils/100 WBC (Bld) 0.1 % Normal 0.0-11.0 [facility] Comment on above: Performed By: #### A CBC #### Testing performed at [address] [address] Lymphocytes (Bld) [#/Vol] 1.0 10*3/uL Low 1.2-3.4 [facility] Comment on above: Performed By: #### A CBC #### Testing performed at [address] [address] Lymphocytes/100 WBC (Bld) 10.2 % Low 20.0-55.0 [facility] Comment on above: Performed By: #### A CBC #### Testing performed at [address] [address] Monocytes (Bld) [#/Vol] 0.5 10*3/uL Normal 0.0-0.7 [facility] Comment on above: Performed By: #### A CBC #### Testing performed at [address] [address] Monocytes/100 WBC (Bld) 4.8 % Normal 0.0-10.0 [facility] Comment on above: Performed By: #### A CBC #### Testing performed at [address] [address] Neutrophils/100 WBC (Bld) 84.8 % High 37.0-75.0 [facility] Comment on above: Performed By: #### A CBC #### Testing performed at [address] [address] Erythrocyte distribution width (RBC) [Ratio] 13.3 % Normal 11.5-14.5 [facility] Comment on above: Performed By: #### A CBC #### Testing performed at [address] [address] Hematocrit (Bld) [Volume fraction] 32.7 % Low 36.0-48.0 [facility] Comment on above: Performed By: #### A CBC #### Testing performed at [address] [address] Hemoglobin (Bld) [Mass/Vol] 11.0 g/dL Low 12.0-16.0 [facility] Comment on above: Performed By: #### A CBC #### Testing performed at [address] [address] MCH (RBC) [Entitic mass] 28.5 pg Normal 26.0-35.0 [facility] Comment on above: Performed By: #### A CBC #### Testing performed at [address] [address] MCHC (RBC) [Mass/Vol] 33.7 g/dL Normal 27.0-37.0 [facility] Comment on above: Performed By: #### A CBC #### Testing performed at [address] [address] MCV (RBC) [Entitic vol] 84.5 fL Normal 80.0-100.0 [facility] Comment on above: Performed By: #### A CBC #### Testing performed at [address] [address] Platelet mean volume (Bld) [Entitic vol] 7.4 fL Normal 7.4-11.0 [facility] Comment on above: Performed By: #### A CBC #### Testing performed at [address] [address] Platelets (Bld) [#/Vol] 264 10*3/uL Normal 130.0-400.0 [facility] Comment on above: Performed By: #### A CBC #### Testing performed at [address] [address] RBC (Bld) [#/Vol] 3.87 10*6/uL Low 4.0-5.4 [facility] Comment on above: Performed By: #### A CBC #### Testing performed at [address] [address] WBC (Bld) [#/Vol] 10.3 10*3/uL Normal 3.6-11.0 [facility] Comment on above: Performed By: #### A CBC #### Testing performed at [address] [address] CBC, EDIF, PLATELETon 2022 ABSOLUTE BASOPHIL COUNT 0.0 10*3/uL 0.0 - 0.2 10*3/uL [facility] Basophils/100 WBC (Bld) 0.1 % 0.0 - 2.0 % [facility] Differential cell count method Nom (Bld) AUTO DIFF % [facility] Eosinophils (Bld) [#/Vol] 0.0 10*3/uL 0.0 - 0.7 10*3/uL [facility] Eosinophils/100 WBC (Bld) 0.1 % 0.0 - 11.0 % [facility] Erythrocyte distribution width (RBC) [Ratio] 13.3 % 11.5 - 14.5 % [facility] Hematocrit (Bld) [Volume fraction] 32.7 % Low 36.0 - 48.0 % [facility] Hemoglobin (Bld) [Mass/Vol] 11.0 g/dL Low [facility] Interpretation and review of laboratory results Abnormal [facility] Lymphocytes (Bld) [#/Vol] 1.0 10*3/uL Low 1.2 - 3.4 10*3/uL [facility] Lymphocytes/100 WBC (Bld) 10.2 % Low 20.0 - 55.0 % [facility] MCH (RBC) [Entitic mass] 28.5 pg 26.0 - 35.0 PG [facility] MCHC (RBC) [Mass/Vol] 33.7 g/dL [facility] MCV (RBC) [Entitic vol] 84.5 fL [facility] Monocytes (Bld) [#/Vol] 0.5 10*3/uL 0.0 - 0.7 10*3/uL [facility] Monocytes/100 WBC (Bld) 4.8 % 0.0 - 10.0 % [facility] Neutrophils (Bld) [#/Vol] 8.7 10*3/uL High 1.4 - 6.5 10*3/uL [facility] Neutrophils/100 WBC (Bld) 84.8 % High 37.0 - 75.0 % [facility] Platelet mean volume (Bld) [Entitic vol] 7.4 fL [facility] Platelets (Bld) [#/Vol] 264 10*3/uL 130.0 - 400.0 10*3/uL [facility] RBC (Bld) [#/Vol] 3.87 10*6/uL Low 4.0 - 5.4 10*6/uL [facility] WBC (Bld) [#/Vol] 10.3 10*3/uL 3.6 - 11.0 10*3/uL [facility] CMP FASTINGon 01-09-2023 A:G RATIO 0.9 RATIO Low 1.3-2.2 [facility] Comment on above: Performed By: #### C MPF #### Testing performed at [address] [address] ALBUMIN 2.9 G/dl Low 3.5-5.0 [facility] Comment on above: Performed By: #### C MPF #### Testing performed at [address] [address] ALP [Catalytic activity/Vol] 65 U/L Normal 38-126 [facility] Comment on above: Performed By: #### C MPF #### Testing performed at [address] [address] ALT [Catalytic activity/Vol] 13 U/L Low 14-54 [facility] Comment on above: Performed By: #### C MPF #### Testing performed at [address] [address] AST [Catalytic activity/Vol] 15 U/L Normal 15-41 [facility] Comment on above: Performed By: #### C MPF #### Testing performed at [address] [address] Bilirubin [Mass/Vol] 1.1 mg/dL Normal 0.2-1.2 [facility] Comment on above: Performed By: #### C MPF #### Testing performed at [address] [address] Calcium [Mass/Vol] 8.5 mg/dL Normal 8.4-10.2 [facility] Comment on above: Performed By: #### C MPF #### Testing performed at [address] [address] Chloride [Moles/Vol] 101 mmol/L Normal 98-107 [facility] Comment on above: Performed By: #### C MPF #### Testing performed at [address] [address] CO2 [Moles/Vol] 21 mmol/L Low 22-30 [facility] Comment on above: Performed By: #### C MPF #### Testing performed at [address] [address] Creatinine [Mass/Vol] 0.61 mg/dL Normal 0.52-1.04 [facility] Comment on above: Performed By: #### C MPF #### Testing performed at [address] [address] EST. GFR, 147 ml/min/1.73sq.m [facility] Comment on above: Performed By: #### C MPF #### Testing performed at [address] [address] EST. GFR,Non 122 ml/min/1.73sq.m [facility] Comment on above: Performed By: #### C MPF #### Testing performed at [address] [address] GFR Information Average GFR for 30-39 years old = 107. 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 Kidney failure, GFR = <15. The GFR estimate is not adjusted for extreme body surface area or acute process, nor has it been validated for women or ethnic groups other than and . Performed By: #### C MPF #### Testing performed at [address] [address] Glucose [Mass/Vol] 95 mg/dL Normal 70-100 [facility] Comment on above: Result Comment: NORMAL <100 mg/dL PREDIABETES 101-126 mg/dL DIABETES 126 mg/dL or higher Performed By: #### C MPF #### Testing performed at [address] [address] Potassium [Moles/Vol] 3.9 mmol/L Normal 3.5-5.1 [facility] Comment on above: Performed By: #### C MPF #### Testing performed at [address] [address] Protein [Mass/Vol] 6.2 g/dL Low 6.3-8.2 [facility] Comment on above: Performed By: #### C MPF #### Testing performed at [id number] [place] [address] Sodium [Moles/Vol] 130 mmol/L Low 136-145 [facility] Comment on above: Performed By: #### C MPF #### Testing performed at [address] [address] Urea nitrogen [Mass/Vol] 15 mg/dL Normal 7-20 [facility] Comment on above: Performed By: #### C MPF #### Testing performed at [address] [address] COMPREHENSIVE METABOLIC PANE Manjit 01-09-2023 Albumin [Mass/Vol] 2.9 G/dl Low 3.5 - 5.0 G/dl [facility] Albumin/Globulin [Mass ratio] 0.9 {ratio} Low [facility] ALP [Catalytic activity/Vol] 65 U/L [facility] ALT [Catalytic activity/Vol] 13 U/L Low [facility] AST [Catalytic activity/Vol] 15 U/L [facility] Bilirubin [Mass/Vol] 1.1 mg/dL [facility] Calcium [Mass/Vol] 8.5 mg/dL [facility] Chloride [Moles/Vol] 101 mmol/L [facility] CO2 [Moles/Vol] 21 mmol/L Low [facility] Creatinine [Mass/Vol] 0.61 mg/dL [facility] GFR COMMENT Average GFR for 30-39 years old = 107. [facility] Comment on above: Chronic Kidney disea se, GFR = <60. Kidney failure, GFR = <15. The GFR estimate is not adjusted for extreme body surface area or acute process, nor has it been validated for women or ethnic groups other than and . GFR/1.73 sq M.predicted among blacks MDRD (S/P/Bld) [Vol rate/Area] 147 mL/min/{1.73_m2} ml/min/1.73sq. m [facility] GFR/1.73 sq M.predicted among non-blacks MDRD (S/P/Bld) [Vol rate/Area] 122 mL/min/{1.73_m2} ml/min/1.73sq. m [facility] Glucose post fast [Mass/Vol] 95 mg/dL [facility] Comment on above: NORMAL <100 mg/dL PREDIABETES 101-126 mg/dL DIABETES 126 mg/dL or higher Interpretation and review of laboratory results Abnormal [facility] Potassium [Moles/Vol] 3.9 mmol/L [facility] Protein [Mass/Vol] 6.2 g/dL Low [facility] Sodium [Moles/Vol] 130 mmol/L Low [facility] Urea nitrogen [Mass/Vol] 15 mg/dL [facility] No Panel Informationon 01-09 [facility] OB ultrasound panelon 2022 IMPRESSION: 1. Single intrauterine fetus in variable position with heart rate of 162 beats per minute. 2. Anterior grade II placenta without previa. Placenta is normal in appearance for gestational age. 3. Estimated gestational age by ultrasound is 31 weeks 5 days with an estimated date of confinement by ultrasound of 03/08/2023. Provided clinical gestational age is 31 weeks 1 day. 4. Estimated weight is 1766 g +/- 265 g (3 lbs. 14 oz. +/- 9 ounces). Estimated weight is 48% of expected weight based on clinical gestational age according to Hadlock criteria. 5. Amniotic fluid index of 13.47 cm, with maximum vertical pocket of 4.91 cm. This is between the 5th and 50th percentile for gestational age. 6. Total biophysical profile score of 8 out of 8. RADIOLOGY EXAM: US OB BIOPHYSICAL PROF WITH NST, US OB GROWTH/DATING > 14WEEKS TECHNIQUE: Transabdominal obstetrical ultrasound was performed. Ultrasound biophysical profile CLINICAL: Left-sided abdominal pain. TECHNIQUE: Dedicated ultrasound imaging of the fetus was performed to include the farm boss's evaluation of biophysical profile. FINDINGS: There are no prior comparison studies at this institution. FETUS AND PLACENTA: There is a single living intrauterine fetus in variable position with heart rate of 162 beats per minute. The grade II placenta is anterior in location, without previa. Placenta is normal in appearance for gestational age. AMNIOTIC FLUID: Amniotic fluid index is 13.47 cm, with maximum vertical pocket of 4.91 cm. BIOMETRY: Biparietal diameter (BPD): 7.87 cm, gestational age of 31 weeks 4 days, Head circumference (HC): 29.69 cm, gestational age of 32 weeks 6 days, Abdominal circumference (AC): 27.88 cm, gestational age of 32 weeks 0 days, Femur length (FL): 5.75 cm, gestational age of 30 weeks 1 day, Head circumference to abdominal circumference ratio (HC:AC): 1.06 Femur length to biparietal diameter ratio (FL:BPD): 73% Femur length to abdominal circumference ratio (FL:AC): 21% ULTRASOUND GESTATIONAL AGE AND ESTIMATED DATE OF CONFINEMENT: The estimated gestational age by ultrasound is 31 weeks 5 days with an estimated date of confinement by the ultrasound of 03/08/2023. ESTIMATED WEIGHT: 1766 g +/- 265 g (3 lbs. 14 oz. +/- 9 ounces). Estimated weight is 48% of expected weight based on clinical gestational age according to Hadlock criteria. BIOPHYSICAL PROFILE: motion: 2 out of 2. tone: 2 out of 2. breathin out of 2. Amniotic fluid volume: 2 out of 2. Total score: 8 out of 8. RADIOLOGY Luana Berman MD - 01/09/2023 EXAM: US OB BIOPHYSICAL PROF WITH NST, US OB GROWTH/DATING > 14WEEKS TECHNIQUE: Transabdominal obstetrical ultrasound was performed. Ultrasound biophysical profile CLINICAL: Left-sided abdominal pain. TECHNIQUE: Dedicated ultrasound imaging of the fetus was performed to include the farm boss's evaluation of biophysical profile. FINDINGS: There are no prior comparison studies at this institution. FETUS AND PLACENTA: There is a single living intrauterine fetus in variable position with heart rate of 162 beats per minute. The grade II placenta is anterior in location, without previa. Placenta is normal in appearance for gestational age. AMNIOTIC FLUID: Amniotic fluid index is 13.47 cm, with maximum vertical pocket of 4.91 cm. BIOMETRY: Biparietal diameter (BPD): 7.87 cm, gestational age of 31 weeks 4 days, Head circumference (HC): 29.69 cm, gestational age of 32 weeks 6 days, Abdominal circumference (AC): 27.88 cm, gestational age of 32 weeks 0 days, Femur length (FL): 5.75 cm, gestational age of 30 weeks 1 day, Head circumference to abdominal circumference ratio (HC:AC): 1.06 Femur length to biparietal diameter ratio (FL:BPD): 73% Femur length to abdominal circumference ratio (FL:AC): 21% ULTRASOUND GESTATIONAL AGE AND ESTIMATED DATE OF CONFINEMENT: The estimated gestational age by ultrasound is 31 weeks 5 days with an estimated date of confinement by the ultrasound of 03/08/2023. ESTIMATED WEIGHT: 1766 g +/- 265 g (3 lbs. 14 oz. +/- 9 ounces). Estimated weight is 48% of expected weight based on clinical gestational age according to Hadlock criteria. BIOPHYSICAL PROFILE: motion: 2 out of 2. tone: 2 out of 2. breathin out of 2. Amniotic fluid volume: 2 out of 2. Total score: 8 out of 8. IMPRESSION IMPRESSION: 1. Single intrauterine fetus in variable position with heart rate of 162 beats per minute. 2. Anterior grade II placenta without previa. Placenta is normal in appearance for gestational age. 3. Estimated gestational age by ultrasound is 31 weeks 5 days with an estimated date of confinement by ultrasound of 03/08/2023. Provided clinical gestational age is 31 weeks 1 day. 4. Estimated weight is 1766 g +/- 265 g (3 lbs. 14 oz. +/- 9 ounces). Estimated weight is 48% of expected weight based on clinical gestational age according to Hadlock criteria. 5. Amniotic fluid index of 13.47 cm, with maximum vertical pocket of 4.91 cm. This is between the 5th and 50th percentile for gestational age. 6. Total biophysical profile score of 8 out of 8. [facility] Radiology Study observation (narrative) [facility] Radiology Study observation (narrative) [facility] OB ultrasound panelOrdered B y: Luana Berman on 01-09-2023 [facility] Work Phone: RAPID TOX SCREEN,URINEon FENTANYL QUANTITY NOT SUFFICIENT Abnormal NEGATIVE [facility] Comment on above: Result Comment: 20 n g/mL CUTOFF *Unconfirmed Screening Result* Unconfirmed screening results are to be used only for medical treatment purposes. This test has not been approved by the FDA. Performed By: #### R TOX #### [place] [address] AMPHETAMINE Negative Normal NEGATIVE [facility] Comment on above: Result Comment: <500 ng/ml CUTOFF Performed By: #### R TOX #### Testing performed at [address] [place] [address] BARBITURATES Negative Normal NEGATIVE [facility] Comment on above: Result Comment: <200 ng/ml CUTOFF Performed By: #### R TOX #### Testing performed at [address] [place] [address] BENZODIAZEPINES Negative Normal NEGATIVE [facility] Comment on above: Result Comment: <150 ng/ml CUTOFF Performed By: #### R TOX #### Testing performed at [address] [place] [address] BUPRENORPHINE Negative Normal NEGATIVE [facility] Comment on above: Result Comment: <10 ng/ml CUTOFF Performed By: #### R TOX #### Testing performed at [address] [place] [address] CANNABINOIDS Negative Normal NEGATIVE [facility] Comment on above: Result Comment: <50 ng/ml CUTOFF Performed By: #### R TOX #### Testing performed at [address] [place] [address] COCAINE Negative Normal NEGATIVE [facility] Comment on above: Result Comment: <150 ng/ml CUTOFF Performed By: #### R TOX #### Testing performed at [address] [place] [address] METHADONE Negative Normal NEGATIVE [facility] Comment on above: Result Comment: <200 ng/ml CUTOFF Performed By: #### R TOX #### Testing performed at [address] [place] [address] METHAMPHETAMINE Negative Normal NEGATIVE [facility] Comment on above: Result Comment: <500 ng/ml CUTOFF Performed By: #### R TOX #### Testing performed at [address] [place] [address] OPIATES Negative Normal NEGATIVE [facility] Comment on above: Result Comment: <100 ng/ml CUTOFF Performed By: #### R TOX #### Testing performed at [address] [place] [address] OXYCODONE Negative Normal NEGATIVE [facility] Comment on above: Result Comment: <100 ng/ml CUTOFF Performed By: #### R TOX #### Testing performed at [facility] [address] [facility] [place] [place] [address] PHENCYCLIDINE Negative Normal NEGATIVE [facility] Comment on above: Result Comment: <25 ng/ml CUTOFF Performed By: #### R TOX #### Testing performed at [facility] [address] [place] [address], [place] [address] PROPOXYPHENE Negative Normal NEGATIVE [facility] Comment on above: Result Comment: <300 ng/ml CUTOFF Performed By: #### R TOX #### Testing performed at [address] [place] [address] TRICYCLIC ANTIDEPRESSANTS Negative Normal NEGATIVE [facility] Comment on above: Result Comment: <300 ng/ml CUTOFF Performed By: #### R TOX #### Testing performed at [address] [place] [address] TOXICOLOGY DRUG SCREEN, URIN Oziel 01-09-2023 Amphetamine (U) [Mass/Vol] Negative NEGATIVE NG/ML [facility] Comment on above: <500 ng/ml CUTOFF Barbiturates Screen Ql (U) Negative NEGATIVE NG/ML [facility] Comment on above: <200 ng/ml CUTOFF Benzodiazepines Ql (U) Negative NEGATIVE NG/M [facility] Comment on above: <150 ng/ml CUTOFF Benzoylecgonine Ql (U) Negative NEGATIVE NG/M L [facility] Comment on above: <150 ng/ml CUTOFF Buprenorphine Ql (U) Negative NEGATIVE NG/ML [facility] Comment on above: <10 ng/ml CUTOFF Cannabinoids Screen Ql (U) Negative NEGATIVE NG/ML [facility] Comment on above: <50 ng/ml CUTOFF Fentanyl QUANTITY NOT SUFFICIENT Abnormal NEGATIVE NG/ML [facility] Comment on above: 20 ng/mL CUTOFF *Unconfirmed Screening Result* Unconfirmed screening results are to be used only for medical treatment purposes. This test has not been approved by the FDA. Interpretation and review of laboratory results Abnormal [email or web address] Methadone Screen Ql (U) Negative NEGATIVE NG/ML [facility] Comment on above: <200 ng/ml CUTOFF Methamphetamine (U) [Mass/Vol] Negative NEGATIVE NG/ML [facility] Comment on above: <500 ng/ml CUTOFF Opiates Screen Ql (U) Negative NEGATIVE NG/ML [facility] Comment on above: <100 ng/ml CUTOFF oxyCODONE Ql (U) Negative NEGATIVE NG/ML [facility] Comment on above: <100 ng/ml CUTOFF Phencyclidine Screen method >25 ng/mL Ql (U) Negative NEGATIVE NG/ML [facility] Comment on above: <25 ng/ml CUTOFF Propoxyphene+Norpropox yphene Screen Ql (U) Negative NEGATIVE NG/ML [facility] Comment on above: <300 ng/ml CUTOFF Tricyclic antidepressants Screen Ql (U) Negative NEGATIVE NG/ML [facility] Comment on above: <300 ng/ml CUTOFF [facility] URINALYSIS, MACROon 01-09-20 23 Bilirubin Ql (U) Negative NEGATIVE [facility] Clarity (U) CLEAR CLEAR [facility] Color (U) YELLOW YELLOW [facility] Glucose Test strip (U) [Mass/Vol] Negative NEGATIVE mg/dl [facility] Hemoglobin Ql (U) TRACE-INTACT Abnormal NEGATIVE [facility] Interpretation and review of laboratory results Abnormal [facility] Ketones (U) [Mass/Vol] Negative NEGATIVE mg/d l [facility] Leukocyte esterase Test strip Ql (U) MODERATE Abnormal NEGATIVE [facility] Nitrite Ql (U) Negative NEGATIVE [facility] pH (U) 6.5 [pH] 5.0 - 7.0 [facility] Protein Ql (U) Negative NEGATIVE mg/dl [facility] Specific gravity (U) [Rel density] 1.010 1.010 - 1.025 [facility] Urobilinogen (U) [Mass/Vol] 0.2 mg/dL [facility] URINE CULTUREon 01-09-2023 Bacteria identified Cx Nom (U) SPECIMEN DESCRIPTION URINE CLEAN CATCH CULTURE NO PATHOGENS ISOLATED * Result Note: Testing performed at [place], [place] [address] * REPORT STATUS 01/11/2023 * Result Note: FINAL * Normal [facility] Comment on above: Performed By: #### A URNC #### Testing performed at [facility] [address] [place] [address] Testing performed at [facility] [address] [place] [address] URINE MACROSCOPICon 01-09-20 23 Bilirubin Ql (U) Negative Normal NEGATIVE [facility] Comment on above: Performed By: #### U REGNIE, UMAC #### Testing performed at [address] [address] Clarity (U) CLEAR Normal CLEAR [facility] Comment on above: Performed By: #### U REGINE, UMAC #### Testing performed at [address] [place] [address] Color (U) YELLOW Normal YELLOW [facility] Comment on above: Performed By: #### U REGINE, UMAC #### Testing performed at [address] [address] Glucose Ql (U) Negative Normal NEGATIVE [facility] Comment on above: Performed By: #### U REGINE, UMAC #### Testing performed at [address] [address] pH (U) 6.5 [pH] Normal 5.0-7.0 [facility] Comment on above: Performed By: #### U REGINE, UMAC #### Testing performed at [address] [place] [address] URINE HEMOGLOBIN TRACE-INTACT Abnormal NEGATIVE [facility] Comment on above: Performed By: #### U REGINE, UMAC #### Testing performed at [address] [place] [address] URINE KETONE Negative Normal NEGATIVE [facility] Comment on above: Performed By: #### U REGINE, UMAC #### Testing performed at [address] [address] URINE LEUKOTEST MODERATE Abnormal NEGATIVE [facility] Comment on above: Performed By: #### U REGINE, UMAC #### Testing performed at [address] [place] [address] URINE NITRATES Negative Normal NEGATIVE [facility] Comment on above: Performed By: #### U REGINE, UMAC #### Testing performed at [address] [address] URINE SPEC GRAVITY 1.010 Normal 1.010-1.025 [facility] Comment on above: Performed By: #### U REGINE, UMAC #### Testing performed at [address] [address] URINE TOTAL PROTEIN Negative Normal NEGATIVE [facility] Comment on above: Performed By: #### U REGNIE, UMAC #### Testing performed at [address] [address] Urobilinogen Qn (U) 0.2 {Sofía'U}/dL Normal 0.2-1.0 [facility] Comment on above: Performed By: #### U REGINE, UMAC #### Testing performed at [address] [address] URINE MICROSCOPICon 01-09-20 23 Bacteria LM.HPF (Urine sed) [#/Area] Negative Normal NEGATIVE [facility] Comment on above: Performed By: #### U REGINE, UMAC #### [place] [address] CASTS NONE Normal NONE [facility] Comment on above: Performed By: #### U REGINE, UMAC #### [place] [address] CRYSTAL NONE Normal NONE [facility] Comment on above: Performed By: #### U REGINE, UMAC #### Testing performed at [address] [address] Epithelial cells LM Ql (Urine sed) 1 TO 5 Normal [facility] Comment on above: Performed By: #### U REGINE, UMAC #### Testing performed at [address] [address] Mucus Ql (Urine sed) Negative Normal NEGATIVE [facility] Comment on above: Performed By: #### U REGINE, UMAC #### Testing performed at [address] [address] URINE COMMENT REFLEX CULTURE PER ESTABLISHED CRITERIA. Normal [facility] Comment on above: Performed By: #### U REGINE, UMAC #### Testing performed at [address] [address] URINE RBC'S 1 TO 5 Normal NEGATIVE [facility] Comment on above: Performed By: #### U REGINE, UMAC #### Testing performed at [address] [address] URINE WBC'S 1 TO 5 Normal NEGATIVE [facility] Comment on above: Performed By: #### U REGINE, UMAC #### Testing performed at [facility] [address] [place] [address] Bacteria LM.HPF (Urine sed) [#/Area] Negative NEGATIVE [facility] Casts LM.LPF (Urine sed) [#/Area] NONE NONE /LPF [facility] Crystals LM Nom (Urine sed) NONE NONE [facility] Epithelial cells LM Ql (Urine sed) 1 TO 5 /HPF [facility] Mucus Ql (Urine sed) Negative NEGATIVE [facility] RBC LM.HPF (Urine sed) [#/Area] 1 TO 5 NEGATIVE /HPF [facility] Urine sediment comments LM Abdiaziz (Urine sed) REFLEX CULTURE PER ESTABLISHED CRITERIA. [facility] WBC LM.HPF (Urine sed) [#/Area] 1 TO 5 NEGATIVE /HPF [facility] US Kidneyon 01-09-2023 IMPRESSION: 1. Moderate left hydronephrosis. The left kidney is otherwise negative. 2. The right kidney is normal. 3. Within the bladder a left ureteric jet is not seen, consistent with obstruction or partial obstruction causing left hydronephrosis. RADIOLOGY EXAM: US RENAL RETROPERITONEAL HISTORY: Left kidney pain. Left flank pain. COMPARISON: None. TECHNIQUE: Sonographic evaluation of the kidneys and bladder was performed. FINDINGS: The right kidney measures 12.3 x 4.6 x 4.6 cm with a cortical thickness of 9 mm. There is no evidence of hydronephrosis or mass. The left kidney measures 15.5 x 5.2 x 8.3 cm with a cortical thickness of 12 mm. Moderate hydronephrosis of the left collecting system is noted, without mass. Color Doppler evaluation bilaterally is normal. The bladder contour is normal. A right ureteric jet is noted. A left ureteric jet could not be visualized. RADIOLOGY Patrick Fabian MD - 01/09/2023 EXAM: US RENAL RETROPERITONEAL HISTORY: Left kidney pain. Left flank pain. COMPARISON: None. TECHNIQUE: Sonographic evaluation of the kidneys and bladder was performed. FINDINGS: The right kidney measures 12.3 x 4.6 x 4.6 cm with a cortical thickness of 9 mm. There is no evidence of hydronephrosis or mass. The left kidney measures 15.5 x 5.2 x 8.3 cm with a cortical thickness of 12 mm. Moderate hydronephrosis of the left collecting system is noted, without mass. Color Doppler evaluation bilaterally is normal. The bladder contour is normal. A right ureteric jet is noted. A left ureteric jet could not be visualized. IMPRESSION IMPRESSION: 1. Moderate left hydronephrosis. The left kidney is otherwise negative. 2. The right kidney is normal. 3. Within the bladder a left ureteric jet is not seen, consistent with obstruction or partial obstruction causing left hydronephrosis. [facility] Radiology Study observation (narrative) [facility] US KidneyOrdered By: Patrick Fabian on 01-09-2023 [facility] Work Phone: US OB BIOPHYSICAL PROF WITH NSTon 01-09-2023 US OB BIOPHYSICAL PROF WITH NST EXAM: US OB BIOPHYSICAL PROF WITH NST, US OB GROWTH/DATING > 14WEEKS TECHNIQUE: Transabdominal obstetrical ultrasound was performed. Ultrasound biophysical profile CLINICAL: Left-sided abdominal pain. TECHNIQUE: Dedicated ultrasound imaging of the fetus was performed to include the farm boss's evaluation of biophysical profile. FINDINGS: There are no prior comparison studies at this institution. FETUS AND PLACENTA: There is a single living intrauterine fetus in variable position with heart rate of 162 beats per minute. The grade II placenta is anterior in location, without previa. Placenta is normal in appearance for gestational age. AMNIOTIC FLUID: Amniotic fluid index is 13.47 cm, with maximum vertical pocket of 4.91 cm. BIOMETRY: Biparietal diameter (BPD): 7.87 cm, gestational age of 31 weeks 4 days, Head circumference (HC): 29.69 cm, gestational age of 32 weeks 6 days, Abdominal circumference (AC): 27.88 cm, gestational age of 32 weeks 0 days, Femur length (FL): 5.75 cm, gestational age of 30 weeks 1 day, Head circumference to abdominal circumference ratio (HC:AC): 1.06 Femur length to biparietal diameter ratio (FL:BPD): 73% Femur length to abdominal circumference ratio (FL:AC): 21% ULTRASOUND GESTATIONAL AGE AND ESTIMATED DATE OF CONFINEMENT: The estimated gestational age by ultrasound is 31 weeks 5 days with an estimated date of confinement by the ultrasound of 03/08/2023. ESTIMATED WEIGHT: 1766 g +/- 265 g (3 lbs. 14 oz. +/- 9 ounces). Estimated weight is 48% of expected weight based on clinical gestational age according to Hadlock criteria. BIOPHYSICAL PROFILE: motion: 2 out of 2. tone: 2 out of 2. breathin out of 2. Amniotic fluid volume: 2 out of 2. Total score: 8 out of 8. IMPRESSION: 1. Single intrauterine fetus in variable position with heart rate of 162 beats per minute. 2. Anterior grade II placenta without previa. Placenta is normal in appearance for gestational age. 3. Estimated gestational age by ultrasound is 31 weeks 5 days with an estimated date of confinement by ultrasound of 03/08/2023. Provided clinical gestational age is 31 weeks 1 day. 4. Estimated weight is 1766 g +/- 265 g (3 lbs. 14 oz. +/- 9 ounces). Estimated weight is 48% of expected weight based on clinical gestational age according to Hadlock criteria. 5. Amniotic fluid index of 13.47 cm, with maximum vertical pocket of 4.91 cm. This is between the 5th and 50th percentile for gestational age. 6. Total biophysical profile score of 8 out of 8. Normal [facility] US OB GROWTH/DATING > 14WEEKSon 01-09-2023 US OB GROWTH/DATING > 14WEEKS EXAM: US OB BIOPHYSICAL PROF WITH NST, US OB GROWTH/DATING > 14WEEKS TECHNIQUE: Transabdominal obstetrical ultrasound was performed. Ultrasound biophysical profile CLINICAL: Left-sided abdominal pain. TECHNIQUE: Dedicated ultrasound imaging of the fetus was performed to include the farm boss's evaluation of biophysical profile. FINDINGS: There are no prior comparison studies at this institution. FETUS AND PLACENTA: There is a single living intrauterine fetus in variable position with heart rate of 162 beats per minute. The grade II placenta is anterior in location, without previa. Placenta is normal in appearance for gestational age. AMNIOTIC FLUID: Amniotic fluid index is 13.47 cm, with maximum vertical pocket of 4.91 cm. BIOMETRY: Biparietal diameter (BPD): 7.87 cm, gestational age of 31 weeks 4 days, Head circumference (HC): 29.69 cm, gestational age of 32 weeks 6 days, Abdominal circumference (AC): 27.88 cm, gestational age of 32 weeks 0 days, Femur length (FL): 5.75 cm, gestational age of 30 weeks 1 day, Head circumference to abdominal circumference ratio (HC:AC): 1.06 Femur length to biparietal diameter ratio (FL:BPD): 73% Femur length to abdominal circumference ratio (FL:AC): 21% ULTRASOUND GESTATIONAL AGE AND ESTIMATED DATE OF CONFINEMENT: The estimated gestational age by ultrasound is 31 weeks 5 days with an estimated date of confinement by the ultrasound of 03/08/2023. ESTIMATED WEIGHT: 1766 g +/- 265 g (3 lbs. 14 oz. +/- 9 ounces). Estimated weight is 48% of expected weight based on clinical gestational age according to Hadlock criteria. BIOPHYSICAL PROFILE: motion: 2 out of 2. tone: 2 out of 2. breathin out of 2. Amniotic fluid volume: 2 out of 2. Total score: 8 out of 8. IMPRESSION: 1. Single intrauterine fetus in variable position with heart rate of 162 beats per minute. 2. Anterior grade II placenta without previa. Placenta is normal in appearance for gestational age. 3. Estimated gestational age by ultrasound is 31 weeks 5 days with an estimated date of confinement by ultrasound of 03/08/2023. Provided clinical gestational age is 31 weeks 1 day. 4. Estimated weight is 1766 g +/- 265 g (3 lbs. 14 oz. +/- 9 ounces). Estimated weight is 48% of expected weight based on clinical gestational age according to Hadlock criteria. 5. Amniotic fluid index of 13.47 cm, with maximum vertical pocket of 4.91 cm. This is between the 5th and 50th percentile for gestational age. 6. Total biophysical profile score of 8 out of 8. Normal [facility] US RENAL RETROPERITONEALon 0 01-09-2023 US RENAL RETROPERITONEAL EXAM: US RENAL RETROPERITONEAL HISTORY: Left kidney pain. Left flank pain. COMPARISON: None. TECHNIQUE: Sonographic evaluation of the kidneys and bladder was performed. FINDINGS: The right kidney measures 12.3 x 4.6 x 4.6 cm with a cortical thickness of 9 mm. There is no evidence of hydronephrosis or mass. The left kidney measures 15.5 x 5.2 x 8.3 cm with a cortical thickness of 12 mm. Moderate hydronephrosis of the left collecting system is noted, without mass. Color Doppler evaluation bilaterally is normal. The bladder contour is normal. A right ureteric jet is noted. A left ureteric jet could not be visualized. IMPRESSION: 1. Moderate left hydronephrosis. The left kidney is otherwise negative. 2. The right kidney is normal. 3. Within the bladder a left ureteric jet is not seen, consistent with obstruction or partial obstruction causing left hydronephrosis. Normal [facility] [id number] 01-29-2022 ABO and Rh group Nom (Bld) Blood group O Rh(D) positive Normal [facility] Comment on above: Performed By: #### L 500.2500, L501.2450, B882-1, L100.0100, L500.3400 #### [facility] [address] [place], [address] Basic Metabolic Profile (BMP )on 01-29-2022 BUN/CRE 20.3 RATIO High 10-20 [facility] Comment on above: Performed By: #### L 500.2500, L501.2450, B882-1, L100.0100, L500.3400 #### [facility] [address] [place], [address] CA,Total 8.4 mg/dL Low 8.5-10.1 [facility] Comment on above: Performed By: #### L 500.2500, L501.2450, B882-1, L100.0100, L500.3400 #### [facility] [address] [place], [address] Chloride [Moles/Vol] 107 mmol/L Normal 98-107 [facility] Comment on above: Performed By: #### L 500.2500, L501.2450, B882-1, L100.0100, L500.3400 #### [facility] [address] [place], [address] CO2 [Moles/Vol] 27.0 mmol/L Normal 21.0-32.0 [facility] Comment on above: Performed By: #### L 500.2500, L501.2450, B882-1, L100.0100, L500.3400 #### [facility] [address] [place], [address] Creatinine [Mass/Vol] 0.54 mg/dL Low 0.55-1.02 [facility] Comment on above: Result Comment: The validity of the calculated GFR GFRAA in patients over 70 years has not been determined. Clinical correlation is essential. Performed By: #### L 500.2500, L501.2450, B882-1, L100.0100, L500.3400 #### [facility] [address] [place], [address] ECRCL 170.26 ml/min Normal [facility] Comment on above: Performed By: #### L 500.2500, L501.2450, B882-1, L100.0100, L500.3400 #### [facility] [address] [place], [address] EST GFR - AA 169 mL/min Normal >60 [facility] Comment on above: Result Comment: Afri can [place]ian GFR Calc Performed By: #### L 500.2500, L501.2450, B882-1, L100.0100, L500.3400 #### [facility] [address] [place], [address] GAP 4 Low 5-15 [facility] Comment on above: Performed By: #### L 500.2500, L501.2450, B882-1, L100.0100, L500.3400 #### [facility] [address] [place], [address] GFR/1.73 sq M.predicted among non-blacks MDRD (S/P/Bld) [Vol rate/Area] 140 mL/min/{1.73_m2} Normal >60 [facility] Comment on above: Result Comment: Non- GFR Calc Performed By: #### L 500.2500, L501.2450, B882-1, L100.0100, L500.3400 #### [facility] [address] [place], [address] Glucose [Mass/Vol] 113 mg/dL High 74-106 [facility] Comment on above: Result Comment: Fast ing Glucose result from 100 to 125 mg/dL suggests IMPAIRED HOMEOSTASIS per A.D.A. criteria. Performed By: #### L 500.2500, L501.2450, B882-1, L100.0100, L500.3400 #### [facility] [address] [place], [address] Potassium [Moles/Vol] 3.6 mmol/L Normal 3.5-5.1 [facility] Comment on above: Performed By: #### L 500.2500, L501.2450, B882-1, L100.0100, L500.3400 #### [facility] [address] [place], [address] Sodium [Moles/Vol] 138 mmol/L Normal 136-145 [facility] Comment on above: Performed By: #### L 500.2500, L501.2450, B882-1, L100.0100, L500.3400 #### [facility] [address] [place], [address] Urea nitrogen [Mass/Vol] 11 mg/dL Normal 7-18 [facility] Comment on above: Performed By: #### L 500.2500, L501.2450, B882-1, L100.0100, L500.3400 #### [facility] [address] [place], [address] CBC W/Diff, Automatedon 03- Absolute Lymph 0.76 X10 3/uL Low 0.83-4.51 [facility] Comment on above: Performed By: #### L 500.2500, L501.2450, B882-1, L100.0100, L500.3400 #### [facility] [address] [place], [address] Absolute Neut 6.9 X10 3/uL Normal 2.0-7.7 [facility] Comment on above: Performed By: #### L 500.2500, L501.2450, B882-1, L100.0100, L500.3400 #### [facility] [address] [place], [address] Basophils/100 WBC (Bld) 0.1 % Normal 0-1 [facility] Comment on above: Performed By: #### L 500.2500, L501.2450, B882-1, L100.0100, L500.3400 #### [facility] [address] [place], [address] Eosinophils/100 WBC (Bld) 0.2 % Normal 0-5 [facility] Comment on above: Performed By: #### L 500.2500, L501.2450, B882-1, L100.0100, L500.3400 #### [facility] [address] [place], [address] Erythrocyte distribution width (RBC) [Ratio] 12.3 % Normal 11.6-14.6 [facility] Comment on above: Performed By: #### L 500.2500, L501.2450, B882-1, L100.0100, L500.3400 #### [facility] [address] [place], [address] Hematocrit (Bld) [Volume fraction] 30.0 % Low 37-47 [facility] Comment on above: Performed By: #### L 500.2500, L501.2450, B882-1, L100.0100, L500.3400 #### [facility] [address] [place], [place], [address] Hemoglobin (Bld) [Mass/Vol] 11.2 g/dL Low 12.0-15.0 [facility] Comment on above: Performed By: #### L 500.2500, L501.2450, B882-1, L100.0100, L500.3400 #### [facility] [address] [place], [address] IG% 0.500 Normal 0.0-0.9 [facility] Comment on above: Result Comment: IG% - Immature Granulocytes (promyelocytes, myelocytes and metamyelocytes) > 1% indicates that a LEFT SHIFT is Present. Performed By: #### L 500.2500, L501.2450, B882-1, L100.0100, L500.3400 #### [facility] [address] [place], [address] Lymphocytes/100 WBC (Bld) 9.4 % Low 19-41 [facility] Comment on above: Performed By: #### L 500.2500, L501.2450, B882-1, L100.0100, L500.3400 #### [facility] [address] [place], [address] MCH (RBC) [Entitic mass] 30.8 pg Normal 27.0-32.0 [facility] Comment on above: Performed By: #### L 500.2500, L501.2450, B882-1, L100.0100, L500.3400 #### [facility] [address] [place], [address] MCHC (RBC) [Mass/Vol] 37.3 g/dL High 32-36 [facility] Comment on above: Performed By: #### L 500.2500, L501.2450, B882-1, L100.0100, L500.3400 #### [facility] [address] [place], [address] MCV (RBC) [Entitic vol] 82.4 fL Normal 81-99 [facility] Comment on above: Performed By: #### L 500.2500, L501.2450, B882-1, L100.0100, L500.3400 #### [facility] [address] [place], [address] Monocytes/100 WBC (Bld) 3.5 % Normal 0-10 [facility] Comment on above: Performed By: #### L 500.2500, L501.2450, B882-1, L100.0100, L500.3400 #### [facility] [address] [place], [address] Neutrophils/100 WBC (Bld) 86.3 % High 47-70 [facility] Comment on above: Performed By: #### L 500.2500, L501.2450, B882-1, L100.0100, L500.3400 #### [facility] [address] [place], [address] Nucleated RBC (Bld) [#/Vol] 0 10*3/uL Normal 0-5 [facility] Comment on above: Performed By: #### L 500.2500, L501.2450, B882-1, L100.0100, L500.3400 #### [facility] [address] [place], [address] Platelet mean volume (Bld) [Entitic vol] 9.8 fL Normal 6.2-12.0 [facility] Comment on above: Performed By: #### L 500.2500, L501.2450, B882-1, L100.0100, L500.3400 #### [facility] [address] [place], [address] Platelets (Bld) [#/Vol] 336 10*3/uL Normal 150-450 [facility] Comment on above: Performed By: #### L 500.2500, L501.2450, B882-1, L100.0100, L500.3400 #### [facility] [address] [place], [address] RBC (Bld) [#/Vol] 3.64 10*6/uL Low 4.2-5.4 [facility] Comment on above: Performed By: #### L 500.2500, L501.2450, B882-1, L100.0100, L500.3400 #### [facility] [address] [place], [address] RDW SD 36.2 fl Normal 35.1-43.9 [facility] Comment on above: Performed By: #### L 500.2500, L501.2450, B882-1, L100.0100, L500.3400 #### [facility] [address] [place], [address] WBC (Bld) [#/Vol] 8.1 10*3/uL Normal 4.4-11.0 [facility] Comment on above: Performed By: #### L 500.2500, L501.2450, B882-1, L100.0100, L500.3400 #### [facility] [address] [place], [address] Emergency Department Summary on 01-29-2022 Emergency Department Summary [facility] Medical Records Department [address] [place] [address] Emergency Department Summary 01/29/22 MR#: [id number] Acct: [id number] Name: DOMINIQUE AZAR Karsten Rep #: [id number] : 1990 31 From: Arturo Darden DO PCP: Dr. Aye Mazariegos, PA-C Status:REG ER Location: ED HPI HPI - Female History of Present Illness Chief Complaint: Vag Bleeding Narrative Narrative: Patient is reported female who was seen a week ago secondary to concern of miscarriage. At that time she had an ultrasound pain which showed no gestational sac with in the uterus. She states that her bleeding started to subside since that visit but then returned over the last day to a heavy flow and she is noted increased lower abdominal pain as well. She states that she is not on blood thinners nor does she have a bleeding disorder. However with her worsening bleeding once again and the lower abdominal pain she was concerned and therefore comes in for evaluation. PFSH PFSH Home Medications vit,[id number] c 1 tab PO DAILY 12/28/19 [History Last Taken 12/27/19 18:00 1 tab] tranexamic acid 650 mg PO BID PRN #10 tab 01/29/22 [Rx Last Taken Unknown] Allergy/AdvReac Type Severity Reaction Status Date / Time No Known Allergies Allergy Verified 01/29/22 06:26 Surgical History no surgical history Social History Smoking Status: Never smoker ROS ROS ED Constitutional Constitutional ED: Denies chills or fever(s) ENT ENT ED: Denies sore throat Cardiovascular Cardiovascular: Denies chest pain Respiratory/Chest Respiratory/Chest: Denies cough or dyspnea Gastrointestinal Gastrointestinal: Reports abdominal pain and nausea; Denies diarrhea or vomiting Genitourinary Genitourinary ED: Reports other Details: Positive vaginal bleeding ; Denies dysuria Musculoskeletal Musculoskeletal: Denies myalgias Integumentary Denies rash Neurologic Neurologic: Denies headache(s) Hematologic/Lymphati c Hematologic/Lymphati c: Denies easy bleeding or easy bruising EXAM Physical Exam Const Vital Signs: 01/29/22 06:21 01/29/22 07:23 Temperature 97.9 F 98.0 F Temperature Source Temporal Oral Pulse Rate 98 76 Respiratory Rate 18 18 Blood Pressure 126/77 H 107/68 Blood Pressure Mean 93 81 Pulse Ox 100 100 Oxygen Delivery Method Room Air Room Air Positive well nourished and well developed General Appearance ED: well developed HEENT Reports moist mucous membranes Eyes PERRL and EOMs intact bilaterally General Eye ED: Negative for pale conjunctiva Neck supple Resp normal respiratory effort and clear to auscultation bilaterally Cardio regular rate and regular rhythm GI soft to palpation and non-distended GI Narrative: Patient has a soft nondistended abdomen with pain with palpation diffusely in the lower abdomen without voluntary guarding or rigidity. There is a ventral hernia that is reducible in nature. No pulsatile mass Auscultation: normoactive bowel sounds Palpation: soft Narrative: Patient deferred pelvic exam Extremity normal to inspection Neuro oriented x3 and CN's II-XII intact bilaterally Sensorium / Orientation: alert Psych mental status grossly normal Skin no rashes or lesions noted Skin Narrative: Skin is slightly pale in color but capillary refill is less than 3 seconds MDM MDM MDM Narrative Medical decision making narrative: Patient presented to the ER afebrile with stable vitals. She had a ultrasound done just approximately week ago which showed a fibroid but no products of conception. She reported her bleeding never completely resolved but was improving and then began to have breakthrough bleeding today. Secondary to this breakthrough bleeding I did elect to obtain basic laboratory studies which patient refused to the last visit and repeat an ultrasound. H H is slightly down at 11 and 30 but this is above transfusion value and the previous value was just above this at 13. She has no signs of acute kidney injury no leukocytosis and stable liver enzymes with no elevated lipase. The patient refused a pelvic exam as she had one last time and states that she feels like she is no longer actively bleeding. Therefore at this time with stable labs no need for transfusion and no persistent bleeding I do not feel she needs to stay in the hospital and can follow-up with [facility] for repeat evaluation I was able to discuss the case with [facility] and they do request that patient have a quantitative hCG value drawn today so they can have a laboratory value to track over the next few weeks. They agree that as she is hemodynamically stable not requiring a transfusion that she can be discharged home and recommend that she have a few TXA tablets in case she has re (more content not included)... Normal [facility] Init OB < 14Wks US 01-29- 022 Init OB < 14Wks [facility] Imaging Services [address] [place] [address] Init OB < 14Wks MR#: [id number] Acct: [id number] Name: DOMINIQUE AZAR Rep #: [id number] : 1990 F 31 From: Clint lange MD PCP: Dr. Aye Mazariegos, PA-C Status: REG ER Study: Init OB < 14Wks US Date of Exam: 01/29/22 Exam# [id number] Ordering Dr: Arturo Darden DO STUDY: FIRST TRIMESTER OBSTETRICAL ULTRASOUND REASON FOR EXAM: Female, 31 years old pelvic pain and bleeding SCANNED 01/21/22 FOR BLEEDING WITH , SUBSIDED AND STARTED BLEEDING AGAIN WITH CLOTS. PELVIC PAIN AND CRAMPING LMP: November 24, 2021 TECHNIQUE: Transabdominal and Transvaginal TECHNICAL QUALITY: Adequate. PRIOR ULTRASOUND: OB ultrasound dated January 21, 2022 FINDINGS: There is no demonstrated intrauterine gestational sac. There is no demonstrated yolk sac. The placenta is non-visualized. There is no demonstrated embryo ( pole). The uterus measures 11.0 x 6.7 x 5.8 cm. A tiny anterior uterine body intramural fibroid is present measuring 7 mm in diameter. The endometrial echo is hyperechoic and measures 15 mm in thickness. No endometrial fluid is present. The cervix is closed. The right ovary measures 2.5 x 2.4 x 1.8 cm. There is no right ovarian cyst. There is no visualized right adnexal mass or complex lesion. The left ovary measures 2.8 x 2.7 x 1.6 cm. There is no left ovarian cyst. There is no visualized left adnexal mass or complex lesion. There is no fluid in the cul de sac. US/Init OB < 14Wks US IMPRESSION: 1. No demonstrated IUP Electronically Signed: Clint Marcelo MD at 9:07 EDT , CC: DARSHANA Mazariegos; Arturo Draden DO Air Transportation Provider: Signed Normal [facility] Lipaseon 01-29-2022 Lipase [Catalytic activity/Vol] 125 U/L Normal 73-393 [facility] Comment on above: Performed By: #### L 500.2500, L501.2450, B882-1, L100.0100, L500.3400 #### [facility] [address] [place], [address] Liver Profileon 01-29-2022 Albumin [Mass/Vol] 3.9 g/dL Normal 3.2-5.0 [facility] Comment on above: Performed By: #### L 500.2500, L501.2450, B882-1, L100.0100, L500.3400 #### [facility] [address] [place], [address] ALK P 48 U/L Normal 45-117 [facility] Comment on above: Performed By: #### L 500.2500, L501.2450, B882-1, L100.0100, L500.3400 #### [facility] [address] [place], [address] ALT [Catalytic activity/Vol] 29 U/L Normal 13-56 [facility] Comment on above: Performed By: #### L 500.2500, L501.2450, B882-1, L100.0100, L500.3400 #### [facility] [address] [place], [address] AST [Catalytic activity/Vol] 16 U/L Normal 15-37 [facility] Comment on above: Performed By: #### L 500.2500, L501.2450, B882-1, L100.0100, L500.3400 #### [facility] [address] [place], [address] Bilirubin [Mass/Vol] 1.50 mg/dL High 0.20-1.00 [facility] Comment on above: Result Comment: For patients on eltrombopag therapy, use of Dimension Doucette TBIL is not recommended. Performed By: #### L 500.2500, L501.2450, B882-1, L100.0100, L500.3400 #### [facility] [address] [place], [address] Bilirubin.direct [Mass/Vol] 0.26 mg/dL Normal 0.00-0.30 [facility] Comment on above: Performed By: #### L 500.2500, L501.2450, B882-1, L100.0100, L500.3400 #### [facility] [address] [place], [address] Globulin (S) [Mass/Vol] 3.4 g/dL Normal 2.2-4.2 [facility] Comment on above: Performed By: #### L 500.2500, L501.2450, B882-1, L100.0100, L500.3400 #### [facility] [address] [place], [address] T PROT 7.3 g/dL Normal 6.4-8.2 [facility] Comment on above: Performed By: #### L 500.2500, L501.2450, B882-1, L100.0100, L500.3400 #### [facility] [address] [place], [address] Urinalysis, Completeon 01-29 BACTERIA 1+ /hpf Normal None Seen [facility] Comment on above: Order Comment: KATHY MIRELES TO SPECIFY Performed By: #### L 400.0001 #### [facility] [address] [place], [address] EPI,SQUAMOUS 0-5 SEEN Normal 5-10 [facility] Comment on above: Order Comment: KATHY MIRELES TO SPECIFY Performed By: #### L 400.0001 #### [facility] [address] [place], [address] RBC 5-10 SEEN Normal 0-5 [facility] Comment on above: Order Comment: KATHY CTOR TO SPECIFY Performed By: #### L 400.0001 #### [facility] [address] [place], [address] WBC 0-5 SEEN Normal 0-5 [facility] Comment on above: Order Comment: KATHY CTOR TO SPECIFY Performed By: #### L 400.0001 #### [facility] [address] [place], [address] Mucus Ql (Urine sed) 0 SEEN Normal [facility] Comment on above: Order Comment: KATHY CTOR TO SPECIFY Performed By: #### L 400.0001 #### [facility] [address] [place], [address] hCG Titer Quant., Serumon HCG QUANT. 314 mIU/mL High 1-3 [facility] Comment on above: Result Comment: hCG levels with Gestational Age Gestational Age hCG mIU/mL (IU/L) 0.2 - 1 week 5 - 50 1-2 weeks 50 - 500 2-3 weeks 100 - 5000 3-4 weeks 500 - 78040 4-5 weeks 1000 - 50987 5-6 weeks 80336 - 100,000 6-8 weeks 67448 - 200,000 2-3 months 41548 - 100,000 Performed By: #### L 500.2500, L501.2450, B882-1, L100.0100, L500.3400 #### [facility] [address] [place], [address] CBC-Complete Blood Cnt No Di ffon 01-21-2022 HCT Normal 37-47 [facility] Comment on above: Result Comment: Canc elled via OM: Pt refuses the test Performed By: #### L 500.2500, L501.2450, B882-1, L100.0100, L500.3400 #### [facility] [address] [place], [address] HGB Normal 12.0-15.0 [facility] Comment on above: Result Comment: Canc elled via OM: Pt refuses the test Performed By: #### L 500.2500, L501.2450, B882-1, L100.0100, L500.3400 #### [facility] [address] [place], [address] MCH Normal 27.0-32.0 [facility] Comment on above: Result Comment: Canc elled via OM: Pt refuses the test Performed By: #### L 500.2500, L501.2450, B882-1, L100.0100, L500.3400 #### [facility] [address] [place], [address] MCHC Normal 32-36 [facility] Comment on above: Result Comment: Canc elled via OM: Pt refuses the test Performed By: #### L 500.2500, L501.2450, B882-1, L100.0100, L500.3400 #### [facility] [address] [place], [address] MCV Normal 81-99 [facility] Comment on above: Result Comment: Canc elled via OM: Pt refuses the test Performed By: #### L 500.2500, L501.2450, B882-1, L100.0100, L500.3400 #### [facility] [address] [place], [address] PLT Normal 150-450 [facility] Comment on above: Result Comment: Canc elled via OM: Pt refuses the test Performed By: #### L 500.2500, L501.2450, B882-1, L100.0100, L500.3400 #### [facility] [address] [place], [address] RBC Normal 4.2-5.4 [facility] Comment on above: Result Comment: Canc elled via OM: Pt refuses the test Performed By: #### L 500.2500, L501.2450, B882-1, L100.0100, L500.3400 #### [facility] [address] [place], [address] RDW CV Normal 11.6-14.6 [facility] Comment on above: Result Comment: Canc elled via OM: Pt refuses the test Performed By: #### L 500.2500, L501.2450, B882-1, L100.0100, L500.3400 #### [facility] [address] [place], [address] RDW SD Normal 35.1-43.9 [facility] Comment on above: Result Comment: Canc elled via OM: Pt refuses the test Performed By: #### L 500.2500, L501.2450, B882-1, L100.0100, L500.3400 #### [facility] [address] [place], [address] WBC Normal 4.4-11.0 [facility] Comment on above: Result Comment: Canc elled via OM: Pt refuses the test Performed By: #### L 500.2500, L501.2450, B882-1, L100.0100, L500.3400 #### [facility] [address] [place], [address] Emergency Department Summary on 01-21-2022 Emergency Department Summary [facility] Medical Records Department [address] [place] [address] Emergency Department Summary 01/21/22 MR#: [id number] Acct: [id number] Name: DOMINIQUE AZAR Karsten Rep #: [id number] : 1990 31 From: Ham Petit MD PCP: Care Physician,No Primary Status:REG ER Location: ED HPI HPI - Female History of Present Illness Chief Complaint: Vag Bld, Preg Informant: patient Pain Pain: Positive for Pelvic Pain Onset: Today Context: Gradual Onset Timing: Intermittent Quality: Positive for Cramping Current Severity: Mild Maximum Severity: Mild Bleeding Issue: Positive for Vaginal bleeding, Passing clots and Passing tissue Onset: Today Timing: Intermittent Current Severity: Mild Maximum Severity: Heavy Associated Symptoms Test: Positive Sexually: Positive for Active Control: No control P: 3 Ab: 0 Narrative Narrative: 31-year-old female G4, P3 Ab0. Think she is somewhere between 8 and 12 weeks . Her blood type is O+. She had no care for this . States that she has had spotting the entire time and then today started having heavier bleeding with clots. At times she would have pelvic pain and other times the pain would resolve. She thinks she may have passed tissue. She was concerned she was having a miscarriage. Denies any dysuria. No fever. Prior similar symptoms: No Recent Illness/Hospitalizat ion: No PFSH PFSH Medical History no medical history no medical history Home Medications vit,[id number] c 1 tab PO DAILY 12/28/19 [History Last Taken 12/27/19 18:00 1 tab] Allergy/AdvReac Type Severity Reaction Status Date / Time No Known Allergies Allergy Verified 01/21/22 20:06 Surgical History no surgical history no surgical history Social History Smoking Status: Never smoker ROS ROS ED ROS Narrative Denies. Review of Systems ROS Unobtainable: Denies due to encephalopathy Constitutional Constitutional ED: Denies fever(s) Eyes Eyes: Denies change in vision ENT ENT ED: Denies ear pain Cardiovascular Cardiovascular: Denies chest pain Respiratory/Chest Respiratory/Chest: Denies dyspnea Gastrointestinal Gastrointestinal: Denies abdominal pain Genitourinary Genitourinary ED: Denies dysuria Musculoskeletal Musculoskeletal: Denies myalgias Integumentary Denies rash Neurologic Neurologic: Denies headache(s) Psychiatric Psychiatric: Denies depression Endocrine Endocrinology: Denies polyuria Hematologic/Lymphati c Hematologic/Lymphati c: Denies easy bruising Allergic/Immunologic Allergic/Immunologic ED: Denies urticaria EXAM Physical Exam Narrative Exam Narrative: 31-year-old female no acute distress vital signs stable afebrile. Lungs are clear. Heart regular rhythm. Abdomen soft nondistended normal bowel sounds no peritoneal signs. Minimal discomfort suprapubically. Moving all 4 extremities. Pelvic exam pending. Const Vital Signs: 01/21/22 20:00 01/21/22 22:32 Temperature 98.6 F Temperature Source Temporal Pulse Rate 86 66 Respiratory Rate 16 14 Blood Pressure 117/75 115/78 Blood Pressure Mean 89 90 Pulse Ox 97 98 Oxygen Delivery Method Room Air Room Air Positive well nourished and well developed; Negative for obese, cachectic, contractures or unkempt General Appearance ED: well developed and NAD; Negative for unkempt, cachectic, contractures, odor of alcohol detected or pallor Nutritional Appearance: Negative for cachectic or obese HEENT Reports moist mucous membranes Negative for trauma or tenderness Eyes PERRL and EOMs intact bilaterally General Eye ED: Negative for pale conjunctiva or scleral icterus Neck no lymphadenopathy, supple and no JVD Thyroid: Negative for tender Chest Wall inspection of chest normal and palpation of chest normal Resp normal respiratory effort and clear to auscultation bilaterally Effort and Inspection: Negative for pain with movement Auscultation: Negative for rales, rhonchi or wheezes Cardio regular rate, regular rhythm, S1 normal heart sound, no murmurs and no JVD GI normal to inspection, nondistended, normoactive bowel sounds, soft to palpation, non-tender, non- distended and no masses Auscultation: normoactive bowel sounds Palpation: Negative for tender, guarding or rigid no CVA tenderness Back/Spine no CVA tenderness Extremity normal to inspection and full ROM General Extremety ED: Negative for edema or tenderness General Extremity: Negative for edema Neuro oriented x3 Sensorium / Orientation: alert, oriented to person, oriented to place and oriented to time Motor Exam: strength 5/5 throughout Psych mental status grossly normal Appearance: Negative for unkempt Moo (more content not included)... Normal [facility] Init OB < 14Wks USon 022 Init OB < 14Wks [facility] Imaging Services [address] [place] [address] Init OB < 14Wks MR#: [id number] Acct: [id number] Name: DOMINIQUE AZAR Karsten Rep #: [id number] : 1990 F 31 From: Hudson Ramos DO PCP: Care Physician,No Primary Status: REG ER Study: Init OB < 14Wks US Date of Exam: 01/21/22 Exam# [id number] Ordering Dr: Ham Petit MD STUDY: FIRST TRIMESTER OBSTETRICAL ULTRASOUND REASON FOR EXAM: Female, 31 years old preg and vaginal bleeding -- patient refused quant LMP: 11/24/2021 TECHNIQUE: Transabdominal and endovaginal TECHNICAL QUALITY: Adequate. PRIOR ULTRASOUND: None. FINDINGS: There is no visualization of an intrauterine gestational sac. The uterus measures 10.0 x 8.3 x 5.5 cm. It is retrograded. There is a 7 x 9 x 8 mm fibroid. Thickened endometrium measuring 19 mm with heterogeneity and possible focal fluid. The cervix is closed. The right ovary measures 2.7 x 1.7 x 1.4 cm. There is no right ovarian cyst. There is no visualized right adnexal mass or complex lesion. The left ovary measures 3.8 x 2.2 x 3.0 cm. There is no left ovarian cyst. There is no visualized left adnexal mass or complex lesion. There is no fluid in the cul de sac. US/Init OB < 14Wks US IMPRESSION: No intrauterine gestational sac is identified. There is thickened endometrium with heterogeneity and possible mild focal fluid. Electronically Signed: Hudson Ramos DO at 23:20 EST , CC: Dr. Ham Petit MD; No Primary Care Physician Air Transportation Provider: Signed Normal [facility] Vital Signs Date Time Vital Sign Value Performing Clinician Faci lity 01-09-2023 22:29-0500 Body temperature 98.01 [degF] Annika Augustine MD Work Phone: [facility] 01-09-2023 22:29-0500 Diastolic blood pressure 52 mm[Hg] Annika Augustine MD Work Phone: [facility] 01-09-2023 22:29-0500 Heart rate 84 /min Annika Augustine MD Work Phone: [facility] 01-09-2023 22:29-0500 Respiratory rate 16 /min Annika Augustine MD Work Phone: [facility] 01-09-2023 22:29-0500 Systolic blood pressure 93 mm[Hg] Annika Augustine MD Work Phone: [facility] 01-09-2023 14:07-0500 Body height 167.6 cm Annika Augustine MD Work Phone: [facility] 01-09-2023 14:07-0500 Body mass index (BMI) [Ratio] 30.67 kg/m2 Annika Augustine MD Work Phone: [facility] 01-09-2023 14:07-0500 Body weight 86.18 kg Annika Augustine MD Work Phone: [facility] 01-09-2023 10:40-0500 Body temperature 98.01 [degF] Rhonda Jeffries MD Work Phone: [facility] 01-09-2023 10:40-0500 Diastolic blood pressure 68 mm[Hg] Rhonda Jeffries MD Work Phone: [facility] 01-09-2023 10:40-0500 Heart rate 86 /min Rhonda Jeffries MD Work Phone: [facility] 01-09-2023 10:40-0500 Respiratory rate 18 /min Rhonda Jeffries MD Work Phone: [facility] 01-09-2023 10:40-0500 SaO2% (BldA) [Mass fraction] 98 % Rhonda Jeffries MD Work Phone: [facility] 01-09-2023 10:40-0500 Systolic blood pressure 123 mm[Hg] Rhonda Jeffries MD Work Phone: [facility] 01-09-2023 06:28-0500 Body height 167.6 cm Rhonda Jeffries MD Work Phone: [facility] 01-09-2023 06:28-0500 Body mass index (BMI) [Ratio] 30.67 kg/m2 Rhonda Jeffries MD Work Phone: [facility] 01-09-2023 06:28-0500 Body weight 86.18 kg Rhonda Jeffries MD Work Phone: [facility] Encounters Encounter Date Encounter Type Care Provider Facility Start: 01-09-2023 End: 01-10-2023 Evaluation and management of inpatient PETTY [facility] Start: 01-09-2023 End: 01-09-[address] [facility] Start: 01-09-2023 End: 01-10-2023 Subsequent hospital visit by physician Rhonda Jeffries MD Work Phone: [facility] Obstetrics Procedures Date Procedure Procedure Detail Performing Clinician Start: 01-09-2023 End: 01-09-2023 Us preg uterus real time f/u trnsabdl per fetus Rhonda Jeffries MD Work Phone: Start: 01-09-2023 Us retroperitoneal r eal time w/image complete Rhonda Jeffries MD Work Phone: Start: 01-09-2023 Complete blood count with white cell differential, automated Rhonda Jeffries MD Work Phone: Start: 01-09-2023 Comprehensive metabo lic panel Rhonda Jeffries MD Work Phone: Start: 01-09-2023 Urinalysis microscopic only Rhonda Jeffries MD Work Phone: Start: 01-09-2023 Urinalysis, reagent strip without microscopy Rhonda Jeffries MD Work Phone: Start: 01-09-2023 Urine drug screening David Jeffries MD Work Phone: Plan of Treatment Date Care Activity Detail Author Start: 2041 Zoster Vaccines (1 of 2) Zoste r Vaccines (1 of 2) [facility] Start: 07-19-2022 Influenza vaccination INFLUENZA VACC INE (#1) [facility] Start: 2021 Screening for malign ant neoplasm of cervix [facility] Start: 2012 Screening for malign ant neoplasm of cervix [facility] Start: 2010 DTaP/Tdap/Td Vaccine s (1 - Tdap) DTaP/Tdap/Td Vaccines (1 - Tdap) [facility] Start: 2010 Third diphtheria, te tanus and acellular pertussis (DTaP) vaccination TDAP (ADULT) [facility] Start: 2009 Hepatitis C screening Hepatitis C Sc reening [facility] Start: 2006 HIV screening HIV SCREENING DISCUSSION [facility] Start: 1992 MMR Vaccines (1 of 1 - Standard series) MMR Vaccines (1 of 1 - Standard series) [facility] Start: 1992 Varicella vaccination Varicell a Vaccines (1 of 2 - 2-dose childhood series) [facility] Start: 03-26-1992 COVID-19 VACCINE (#1) COVID-19 VACCI NE (#1) [facility] Start: 1991 Hepatitis B Vaccines (1 of 3 - 3-dose series) Hepatitis B Vaccines (1 of 3 - 3-dose series) [facility] Start: 1991 Hepatitis C screening HEPATITI S C VIRUS SCREENING [facility] Start: 1991 HIV screening HIV Screening [facility] Start: 1991 Tetanus vaccination TETANUS [facility] End: 01-09-2023 Bacteria identified in Urine by Culture [facility] Work Phone: Comment on above: Once (Lab) for 1 Occ urrences starting 01/09/2023 until 01/09/2023 Social History Date Type Detail Facility Start: 01-09-2023 Tobacco smoking stat us ILIS Never smoked tobacco [facility] Start: 01-09-2023 Tobacco use and exposure Smokeless tobacco non-user [facility] Start: 01-09-2023 Alcohol intake Lifetime non-d willian (finding) [facility] Start: 06-19-[address] [facility] Start: 1991 Sex Assigned At Not on file A [employer] Start: 12-30-2022 End: 01-09-2023 Exposure to SARS-CoV-2 (event) Not sure [facility] Start: 01-09-2023 Tobacco smoking stat us ILIS Tobacco smoking consumption unknown [facility] Start: 01-09-2023 History SDOH Transpo rt Med [address] [facility] Clinical Notes 01-09-2023 to 01-10-2023 Rissa Watts RN - 01/10/2023 8:51 AM Stone Paul MD - 01/09/2023 2:34 PM Stone Paul MD - 01/09/2023 2:34 PM Joyce Castellon DO - 01/09/2023 2:30 PM EST Note Date & Type Note Facility 01-10-2023 Note Department of Obstet rics and Gynecology [facility] Discharge Summary Admission on 01/09/2023 1:00 PM Dominique Azar is a 32 y.o. at 31w2d who was transported from [place] with concerns for nephrolithiasis in secondary to severe left flank pain with left hydronephrosis. Labs notable for normal WBC and Cr, UA positive for blood and leukocyte esterase. She was given rocephin and flexeril prior to transport and had a normal ultrasound for growth and normal BPP in [place]. On arrival, she was started on IV fluids and flomax. Urology was consulted and recommended conservative management with flomax, pain meds and IVF, would consider surgical intervention if pain does not improve. Her pain was well controlled, she received one dose of oxycodone. NST was reactive. On day of discharge pain had completely resolved. 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 Meds: Medication List You have not been prescribed any medications. 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 Discharge instructions given to pt. Instructed pt when to return to labor and delivery. Questions and concerns addressed. Pt signed AMA form with explanation provided. Pt discharged to home with in stable ambulatory undelivered condition. Pt states pain is stable. Dr. Virgen notified of pt discharge. documented in this encounter [facility] 01-09-2023 Note Urology Inpatient Consultation 01/09/2023 HISTORY OF PRESENT ILLNESS: The patient is a 32 y.o. female 31W gestation and new to our service and admitted for L flank pain and L hydro on KULDEEP. Transferred from OSH. Urology consulted for hydronephrosis. She last ate at 0900 today and is currently NPO. Per patient she has been having L flank pain but it is currently controlled, with Morphine last given 5h ago around 10am. Discussed the options of ureteral stent and PNT and that each has its risk and benefits as well as possible discomfort with both. At this time patient would like to trial medication pain control prior to any surgical interventions. Asking to go home with a back up pain medication besides tylenol that she can take if pain worsens. Understands pain may not resolve and she could potentially need intervention later in ED/Hospital workup Cr 0.61 WBC 10.3 HGB 11 UA moderate LE, trace blood on urine dipstick Ucx ordered Outside KULDEEP ([place]) - Moderate L hydro, Within the bladder a left ureteric jet is not seen, consistent with obstruction or partial obstruction causing left hydronephrosis AF HDS PAST MEDICAL HISTORY: History reviewed. No pertinent past medical history. PAST SURGICAL HISTORY: History reviewed. No pertinent surgical history. ALLERGIES: No Known Allergies HOME MEDICATIONS: No medications prior to admission. FAMILY HISTORY: @FAMILYHISTORY@ Social History: Social History Tobacco Use Smoking Status Not on file Smokeless Tobacco Never Social History Substance and Sexual Activity Alcohol Use Never ROS: Constitutional: negative for chills and fevers HEENT: no blurry vision or eye redness Respiratory: negative for hemoptysis and shortness of breath Cardiovascular: negative for dyspnea and syncope Gastrointestinal: negative for jaundice, nausea and vomiting Genitourinary:negative for dysuria and hematuria Hematologic/lymphatic: negative for bleeding Integumentary: no new bruises or lesions Musculoskeletal:negative for muscle weakness Neurological: negative for coordination problems and seizures All other systems negative PHYSICAL EXAM: VITALS: Vitals: 01/09/23 1407 Temp: 37 ?C (98.6 ?F) TempSrc: Oral Weight: 190 lb (86.2 kg) Height: 5' 6 (1.676 m) General: Alert, in no acute distress Head: Normocephalic, atraumatic Neck: supple, trachea is midline, no obvious masses Respiratory: normal effort, no audible wheezes Cardiovascular: regular pulse and no cyanosis Musculoskeletal: moving all extremities, normal tone Skin: warm and dry Psych: normal mood and affect, oriented Abdomen: soft, non distended, non tender, no organomegaly, no hernias : no left flank ttp DATA: LABS: BMP: @BMP@ CBC: No results found for: WBC, HGB, HCT, MCV, PLT Urinalysis: @LASTUA@ Urine Culture: RADIOLOGY: IMPRESSION: 1. Moderate left hydronephrosis. The left kidney is otherwise negative. 2. The right kidney is normal. 3. Within the bladder a left ureteric jet is not seen, consistent with obstruction or partial obstruction causing left hydronephrosis. Narrative EXAM: US RENAL RETROPERITONEAL HISTORY: Left kidney pain. Left flank pain. COMPARISON: None. TECHNIQUE: Sonographic evaluation of the kidneys and bladder was performed. FINDINGS: The right kidney measures 12.3 x 4.6 x 4.6 cm with a cortical thickness of 9 mm. There is no evidence of hydronephrosis or mass. The left kidney measures 15.5 x 5.2 x 8.3 cm with a cortical thickness of 12 mm. Moderate hydronephrosis of the left collecting system is noted, without mass. Color Doppler evaluation bilaterally is normal. The bladder contour is normal. A right ureteric jet is noted. A left ureteric jet could not be visualized. Procedure Note Patrick Fabian MD - 01/09/2023 EXAM: US RENAL RETROPERITONEAL HISTORY: Left kidney pain. Left flank pain. COMPARISON: None. TECHNIQUE: Sonographic evaluation of the kidneys and bladder was performed. FINDINGS: The right kidney measures 12.3 x 4.6 x 4.6 cm with a cortical thickness of 9 mm. There is no evidence of hydronephrosis or mass. The left kidney measures 15.5 x 5.2 x 8.3 cm with a cortical thickness of 12 mm. Moderate hydronephrosis of the left collecting system is noted, without mass. Color Doppler evaluation bilaterally is normal. The bladder contour is normal. A right ureteric jet is noted. A left ureteric jet could not be visualized. IMPRESSION IMPRESSION: 1. Moderate left hydronephrosis. The left kidney is otherwise negative. 2. The right kidney is normal. 3. Within the bladder a left ureteric jet is not seen, consistent with obstruction or partial obstruction causing left hydronephrosis. Exam End: 01/09/23 09:13 Specimen Collected: 01/09/23 07:50 IMPRESSION: 32 y.o. female with left hydronephrosis likely 2/2 PLAN (more content not included)... [facility] 01-09-2023 Note Attestation signed by Petty Mcbride MD at 01/10/2023 3:29 PM [facility] ATTENDING I have personally obtained a history and examined the patient with Dr. Castellon. I agree with the assessment and plan as documented in the resident's note. The patient is a 32 y.o. 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 There she had a RP ultrasound demonstrated left hydronephrosis and concern for left ureteral obstruction. Given her GA and she was transferred to [facility] for urology consultation. In [facility] her labs were normal and testing and ultrasound normal (had not had previously). She declined pelvic exam. Upon arrival to [facility] she was already feeling better. I saw her shortly after arrival and she states pain already improved. She described it as coming and going and worse than labor pain. She denies any contractions, VB, LOF, PreE symptoms. Vitals: 01/09/23 2229 BP: 93/52 Pulse: 84 Resp: 16 Temp: 36.7 ?C (98 ?F) Alert and oriented, appears uncomfortable Gravid nontender abdominal fundus. +flank tenderness Declines pelvic exam Creatinine normal Plan: S/p urology consult- no surgical intervention at this time Clinical course highly suspicious for nephrolithiasis. IVF and Flomax. Observe for improvement. Patient is M[employer]onite and desires minimal intervention- declines labs/glucola, is agreeable to 20min NST only. 30 minutes spent in total floor time today for review of records, patient interview and exam, documentation and coordination of care with care teams. Petty Mcbride MD Department of Maternal Medicine History and Physical CHIEF COMPLAINT: Left flank pain HISTORY OF PRESENT ILLNESS: The patient is a 32 y.o. female at 31w1d. OB History 5 Para 3 Term 3 AB 1 Living 3 SAB 1 IAB Ectopic Multiple Live Births 3 Patient presents with a chief complaint as above and is being admitted for left flank pain and concern for possible nephrolithiasis with or without obstruction. She presented to [place] with severe left flank pain that started around midnight. She states that it is worse than labor. Denies DFM, VB, LOF or Ctx. Transport: Yes , [place] Prior Hospitalizations: No Estimated Due Date: Estimated Date of Delivery: 03/12/23 CARE: Complications: See below PAST OB HISTORY: OB History 5 Para 3 Term 3 AB 1 Living 3 SAB 1 IAB Ectopic Multiple Live Births 3 Detailed OB History TSVD TSVD TSVD SAB Current Past Medical History: History reviewed. No pertinent past medical history. Past Surgical History: History reviewed. No pertinent surgical history. Allergies: Patient has no known allergies. Social History: Social History Socioeconomic History Marital status: Spouse name: sterling Number of children: 3 Years of education: Not on file Highest education level: Not on file Occupational History Not on file Tobacco Use Smoking status: Not on file Smokeless tobacco: Never Vaping Use Vaping Use: Never used Substance and Sexual Activity Alcohol use: Never Drug use: Never Sexual activity: Not on file Other Topics Concern Not on file Social History Narrative Not on file Social Determinants of Health Financial Resource Strain: Not on file Food Insecurity: Not on file Transportation Needs: No Transportation Needs Lack of Transportation (Medical): No Lack of Transportation (Non-Medical): No Physical Activity: Not on file Stress: Not on file Social Connections: Not on file Intimate Partner Violence: Not on file Housing Stability: Not on file Family History: No family history on file. Medications Prior to Admission: No medications prior to admission. REVIEW OF SYSTEMS: Review of Systems Constitutional: Negative for chills and fever. Respiratory: Negative for shortness of breath. Gastrointestinal: Negative for abdominal pain, nausea and vomiting. Genitourinary: Positive for flank pain. Negative for dysuria, hematuria, menstrual problem and urgency. Neurological: Negative for dizziness and light-headedness. Labs: NA PHYSICAL EXAM: Vitals: 01/09/23 1407 Temp: 37 ?C (98.6 ?F) TempSrc: Oral Weight: 190 lb (86.2 kg) Height: 5' 6 (1.676 m) General appearance: awake, alert, cooperative, no apparent distress, and appears stated age Neurologic: Awake, alert, oriented to name, place and time. Lungs: No increased work of breathing, good air exchange Abdomen: Soft, non tender, gravid, consistent with (more content not included)... [facility] 01-09-2023 Consult note Associated Order (s): IP CONSULT TO UROLOGY Urology Inpatient Consultation 01/09/2023 HISTORY OF PRESENT ILLNESS: The patient is a 32 y.o. female 31W gestation and new to our service and admitted for L flank pain and L hydro on KULDEEP. Transferred from OSH. Urology consulted for hydronephrosis. She last ate at 0900 today and is currently NPO. Per patient she has been having L flank pain but it is currently controlled, with Morphine last given 5h ago around 10am. Discussed the options of ureteral stent and PNT and that each has its risk and benefits as well as possible discomfort with both. At this time patient would like to trial medication pain control prior to any surgical interventions. Asking to go home with a back up pain medication besides tylenol that she can take if pain worsens. Understands pain may not resolve and she could potentially need intervention later in ED/Hospital workup Cr 0.61 WBC 10.3 HGB 11 UA moderate LE, trace blood on urine dipstick Ucx ordered Outside KULDEEP ([place]) - Moderate L hydro, Within the bladder a left ureteric jet is not seen, consistent with obstruction or partial obstruction causing left hydronephrosis AF HDS PAST MEDICAL HISTORY: History reviewed. No pertinent past medical history. PAST SURGICAL HISTORY: History reviewed. No pertinent surgical history. ALLERGIES: No Known Allergies HOME MEDICATIONS: No medications prior to admission. FAMILY HISTORY: @FAMILYHISTORY@ Social History: Social History Tobacco Use Smoking Status Not on file Smokeless Tobacco Never Social History Substance and Sexual Activity Alcohol Use Never ROS: Constitutional: negative for chills and fevers HEENT: no blurry vision or eye redness Respiratory: negative for hemoptysis and shortness of breath Cardiovascular: negative for dyspnea and syncope Gastrointestinal: negative for jaundice, nausea and vomiting Genitourinary:negative for dysuria and hematuria Hematologic/lymphatic: negative for bleeding Integumentary: no new bruises or lesions Musculoskeletal:negative for muscle weakness Neurological: negative for coordination problems and seizures All other systems negative PHYSICAL EXAM: VITALS: Vitals: 01/09/23 1407 Temp: 37 C (98.6 F) TempSrc: Oral Weight: 190 lb (86.2 kg) Height: 5' 6 (1.676 m) General: Alert, in no acute distress Head: Normocephalic, atraumatic Neck: supple, trachea is midline, no obvious masses Respiratory: normal effort, no audible wheezes Cardiovascular: regular pulse and no cyanosis Musculoskeletal: moving all extremities, normal tone Skin: warm and dry Psych: normal mood and affect, oriented Abdomen: soft, non distended, non tender, no organomegaly, no hernias : no left flank ttp DATA: LABS: BMP: @BMP@ CBC: No results found for: WBC, HGB, HCT, MCV, PLT Urinalysis: @LASTUA@ Urine Culture: RADIOLOGY: IMPRESSION: 1. Moderate left hydronephrosis. The left kidney is otherwise negative. 2. The right kidney is normal. 3. Within the bladder a left ureteric jet is not seen, consistent with obstruction or partial obstruction causing left hydronephrosis. Narrative EXAM: US RENAL RETROPERITONEAL HISTORY: Left kidney pain. Left flank pain. COMPARISON: None. TECHNIQUE: Sonographic evaluation of the kidneys and bladder was performed. FINDINGS: The right kidney measures 12.3 x 4.6 x 4.6 cm with a cortical thickness of 9 mm. There is no evidence of hydronephrosis or mass. The left kidney measures 15.5 x 5.2 x 8.3 cm with a cortical thickness of 12 mm. Moderate hydronephrosis of the left collecting system is noted, without mass. Color Doppler evaluation bilaterally is normal. The bladder contour is normal. A right ureteric jet is noted. A left ureteric jet could not be visualized. Procedure Note Patrick Fabian MD - 01/09/2023 EXAM: US RENAL RETROPERITONEAL HISTORY: Left kidney pain. Left flank pain. COMPARISON: None. TECHNIQUE: Sonographic evaluation of the kidneys and bladder was performed. FINDINGS: The right kidney measures 12.3 x 4.6 x 4.6 cm with a cortical thickness of 9 mm. There is no evidence of hydronephrosis or mass. The left kidney measures 15.5 x 5.2 x 8.3 cm with a cortical thickness of 12 mm. Moderate hydronephrosis of the left collecting system is noted, without mass. Color Doppler evaluation bilaterally is normal. The bladder contour is normal. A right ureteric jet is noted. A left ureteric jet could not be visualized. IMPRESSION IMPRESSION: 1. Moderate left hydronephrosis. The left kidney is otherwise negative. 2. The right kidney is normal. 3. Within the bladder a left ureteric jet is not seen, consistent with obstruction or partial obstruction causing left hydronephrosis. Exam End: 01/09/23 09:13 Specimen Collected: 01/09/23 07:50 IMPRESSION: 32 y.o. female with left hydronephrosis likely 2/2 PLAN: - Via shared discussion making with the patient, will trial pain control with oral medications (tylenol, oxy, etc per primary) - If pain worsens and is not controlled with oral medications, will need formal imaging with CT AP - L IR PNT discussed with patient as an option for if pain worsens and is not controlled with medications - Ok for diet, will need to be NPO if considering surgical intervention - Ucx ordered - Trend Cr, currently wnl, can also consider intervention if Cr rapidly worsens - Dispo per primary Page the TELEVISION TECHNICIAN urology resident with any questions or concerns Ria Paul MD 01/09/2023 2:35 PM [facility] Phone: 01-09-2023 Consult note Associated Order (s): IP CONSULT TO UROLOGY Urology Inpatient Consultation 01/09/2023 HISTORY OF PRESENT ILLNESS: The patient is a 32 y.o. female 31W gestation and new to our service and admitted for L flank pain and L hydro on KULDEEP. Transferred from OSH. Urology consulted for hydronephrosis. She last ate at 0900 today and is currently NPO. Per patient she has been having L flank pain but it is currently controlled, with Morphine last given 5h ago around 10am. Discussed the options of ureteral stent and PNT and that each has its risk and benefits as well as possible discomfort with both. At this time patient would like to trial medication pain control prior to any surgical interventions. Asking to go home with a back up pain medication besides tylenol that she can take if pain worsens. Understands pain may not resolve and she could potentially need intervention later in ED/Hospital workup Cr 0.61 WBC 10.3 HGB 11 UA moderate LE, trace blood on urine dipstick Ucx ordered Outside KULDEEP ([place]) - Moderate L hydro, Within the bladder a left ureteric jet is not seen, consistent with obstruction or partial obstruction causing left hydronephrosis AF HDS PAST MEDICAL HISTORY: History reviewed. No pertinent past medical history. PAST SURGICAL HISTORY: History reviewed. No pertinent surgical history. ALLERGIES: No Known Allergies HOME MEDICATIONS: No medications prior to admission. FAMILY HISTORY: @FAMILYHISTORY@ Social History: Social History Tobacco Use Smoking Status Not on file Smokeless Tobacco Never Social History Substance and Sexual Activity Alcohol Use Never ROS: Constitutional: negative for chills and fevers HEENT: no blurry vision or eye redness Respiratory: negative for hemoptysis and shortness of breath Cardiovascular: negative for dyspnea and syncope Gastrointestinal: negative for jaundice, nausea and vomiting Genitourinary:negative for dysuria and hematuria Hematologic/lymphatic: negative for bleeding Integumentary: no new bruises or lesions Musculoskeletal:negative for muscle weakness Neurological: negative for coordination problems and seizures All other systems negative PHYSICAL EXAM: VITALS: Vitals: 01/09/23 1407 Temp: 37 C (98.6 F) TempSrc: Oral Weight: 190 lb (86.2 kg) Height: 5' 6 (1.676 m) General: Alert, in no acute distress Head: Normocephalic, atraumatic Neck: supple, trachea is midline, no obvious masses Respiratory: normal effort, no audible wheezes Cardiovascular: regular pulse and no cyanosis Musculoskeletal: moving all extremities, normal tone Skin: warm and dry Psych: normal mood and affect, oriented Abdomen: soft, non distended, non tender, no organomegaly, no hernias : no left flank ttp DATA: LABS: BMP: @BMP@ CBC: No results found for: WBC, HGB, HCT, MCV, PLT Urinalysis: @LASTUA@ Urine Culture: RADIOLOGY: IMPRESSION: 1. Moderate left hydronephrosis. The left kidney is otherwise negative. 2. The right kidney is normal. 3. Within the bladder a left ureteric jet is not seen, consistent with obstruction or partial obstruction causing left hydronephrosis. Narrative EXAM: US RENAL RETROPERITONEAL HISTORY: Left kidney pain. Left flank pain. COMPARISON: None. TECHNIQUE: Sonographic evaluation of the kidneys and bladder was performed. FINDINGS: The right kidney measures 12.3 x 4.6 x 4.6 cm with a cortical thickness of 9 mm. There is no evidence of hydronephrosis or mass. The left kidney measures 15.5 x 5.2 x 8.3 cm with a cortical thickness of 12 mm. Moderate hydronephrosis of the left collecting system is noted, without mass. Color Doppler evaluation bilaterally is normal. The bladder contour is normal. A right ureteric jet is noted. A left ureteric jet could not be visualized. Procedure Note Caren, Patrick S, MD - 01/09/2023 EXAM: US RENAL RETROPERITONEAL HISTORY: Left kidney pain. Left flank pain. COMPARISON: None. TECHNIQUE: Sonographic evaluation of the kidneys and bladder was performed. FINDINGS: The right kidney measures 12.3 x 4.6 x 4.6 cm with a cortical thickness of 9 mm. There is no evidence of hydronephrosis or mass. The left kidney measures 15.5 x 5.2 x 8.3 cm with a cortical thickness of 12 mm. Moderate hydronephrosis of the left collecting system is noted, without mass. Color Doppler evaluation bilaterally is normal. The bladder contour is normal. A right ureteric jet is noted. A left ureteric jet could not be visualized. IMPRESSION IMPRESSION: 1. Moderate left hydronephrosis. The left kidney is otherwise negative. 2. The right kidney is normal. 3. Within the bladder a left ureteric jet is not seen, consistent with obstruction or partial obstruction causing left hydronephrosis. Exam End: 01/09/23 09:13 Specimen Collected: 01/09/23 07:50 IMPRESSION: 32 y.o. female with left hydronephrosis likely 2/2 PLAN: - Via shared discussion making with the patient, will trial pain control with oral medications (tylenol, oxy, etc per primary) - If pain worsens and is not controlled with oral medications, will need formal imaging with CT AP - L IR PNT discussed with patient as an option for if pain worsens and is not controlled with medications - Ok for diet, will need to be NPO if considering surgical intervention - Ucx ordered - Trend Cr, currently wnl, can also consider intervention if Cr rapidly worsens - Dispo per primary Page the TELEVISION TECHNICIAN urology resident with any questions or concerns Ria Paul MD 01/09/2023 2:35 PM documented in this encounter [facility] 01-09-2023 History and physical note Department of Maternal Medicine History and Physical CHIEF COMPLAINT: Left flank pain HISTORY OF PRESENT ILLNESS: The patient is a 32 y.o. female at 31w1d. OB History 5 Para 3 Term 3 AB 1 Living 3 SAB 1 IAB Ectopic Multiple Live Births 3 Patient presents with a chief complaint as above and is being admitted for left flank pain and concern for possible nephrolithiasis with or without obstruction. She presented to [place] with severe left flank pain that started around midnight. She states that it is worse than labor. Denies DFM, VB, LOF or Ctx. Transport: Yes , [place] Prior Hospitalizations: No Estimated Due Date: Estimated Date of Delivery: 03/12/23 CARE: Complications: See below PAST OB HISTORY: OB History 5 Para 3 Term 3 AB 1 Living 3 SAB 1 IAB Ectopic Multiple Live Births 3 Detailed OB History TSVD TSVD TSVD SAB Current Past Medical History: History reviewed. No pertinent past medical history. Past Surgical History: History reviewed. No pertinent surgical history. Allergies: Patient has no known allergies. Social History: Social History Socioeconomic History Marital status: Spouse name: sterling Number of children: 3 Years of education: Not on file Highest education level: Not on file Occupational History Not on file Tobacco Use Smoking status: Not on file Smokeless tobacco: Never Vaping Use Vaping Use: Never used Substance and Sexual Activity Alcohol use: Never Drug use: Never Sexual activity: Not on file Other Topics Concern Not on file Social History Narrative Not on file Social Determinants of Health Financial Resource Strain: Not on file Food Insecurity: Not on file Transportation Needs: No Transportation Needs Lack of Transportation (Medical): No Lack of Transportation (Non-Medical): No Physical Activity: Not on file Stress: Not on file Social Connections: Not on file Intimate Partner Violence: Not on file Housing Stability: Not on file Family History: No family history on file. Medications Prior to Admission: No medications prior to admission. REVIEW OF SYSTEMS: Review of Systems Constitutional: Negative for chills and fever. Respiratory: Negative for shortness of breath. Gastrointestinal: Negative for abdominal pain, nausea and vomiting. Genitourinary: Positive for flank pain. Negative for dysuria, hematuria, menstrual problem and urgency. Neurological: Negative for dizziness and light-headedness. Labs: NA PHYSICAL EXAM: Vitals: 01/09/23 1407 Temp: 37 C (98.6 F) TempSrc: Oral Weight: 190 lb (86.2 kg) Height: 5' 6 (1.676 m) General appearance: awake, alert, cooperative, no apparent distress, and appears stated age Neurologic: Awake, alert, oriented to name, place and time. Lungs: No increased work of breathing, good air exchange Abdomen: Soft, non tender, gravid, consistent with her gestational age Patient declines SVE/SSE on admission ASSESSMENT AND PLAN: LABOR DELIVERY ??? SCD's ONLY (labor through ambulation) SCD's PLUS Prophylactic Anticoagulation until discharge SCD's PLUS Prophylactic Anticoagulation for 6 weeks SCD's PLUS Therapeutic Anticoagulation for 6 weeks Vaginal Delivery [] BMI ? 40 kg/m2 Delivery All patients Vaginal Delivery [] BMI ? 40 kg/m2 AND [] Antepartum hospitalization ? 72 hours within the past month Delivery 1 Major Risk Factor: [] BMI ? 35 kg/m2 [] Low Risk Thrombophilia [] PPH+RBCs, IR, or operation [] Infection+Antibiotics [] Antepartum hospitalization ? 72 hours within the past month [] PMH: Sickle Cell, SLE, Cardiac Dz, Active IBD, Active Cancer, Nephrotic Syndrome OR 2 Minor Risk Factors: [] Multiple gestation [] Age > 40 [] PPH ? 1,000cc [] (+)FMH of VTE [] Smoker [] Preeclampsia [] BMI ? 40 kg/m2 AND [] Low Risk Thrombophilia OR ANY OF THE FOLLOWING: [] High Risk Thrombophilia without prior VTE [] Low Risk Thrombophilia with (+)FMH of VTE [] Any single prior VTE ANY OF THE FOLLOWING: [] Already on LMWH/UFH [] Multiple prior VTE [] High Risk Thrombophilia with prior VTE Low Risk Thrombophilia: FVL (heterozygous), Prothrombin (heterozygous), Protein C, Protein S High Risk Thrombophilia: FVL (homozygous), Prothrombin (homozygous), FVL+Prothrombin (heterozygous), Antithrombin III, APLS VTE Prophylaxis: Not Indicated Admission: Admit to Antepartum (PNU) FHR: FHR in 140s on admission declining monitoring, heart monitoring NST daily Labs: GBS ordered, but not yet obtained GC/CT ordered, but not yet obtained Urine collected FFN not obtained Type&Screen collected Serum Labs Consults: urology Imaging: Not indicated Diet: General Testing: TBD Timing and Route of Delivery: TBD Medications: Neuroprotection Not indicated Tocolysis Not indicated Antibiotics Not indicated Steroids: Betamethasone - not indicated Left flank pain Possible nephrolithiasis with obstruction Moderate left hydronephrosis -Transferred from [place] for severe left flank pain that started last night, concern for nephrolithiasis causing obstruction on US at outside facility and transferred here for urology recommendations -Her pain is better controlled since arriving to our facility -PRN oxycodone for pain -Flomax daily, IVF running -Urology consulted and following, appreciate recs -Plan for CT scan if pain worsens or if unchanged with IVF and Flomax No care -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 Mcbride, who agrees with plan. DEB CASTELLON, DO 01/09/2023, 2:26 PM Cc: Petty Mcbride MD Associated attestation - Petty Mcbride MD - 01/10/2023 3:29 PM EST MFM ATTENDING I have personally obtained a history and examined the patient with Dr. Castellon. I agree with the assessment and plan as documented in the resident's note. The patient is a 32 y.o. 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 There she had a RP ultrasound demonstrated left hydronephrosis and concern for left ureteral obstruction. Given her GA and she was transferred to [facility] for urology consultation. In pavilion her labs were normal and testing and ultrasound normal (had not had previously). She declined pelvic exam. Upon arrival to [facility] she was already feeling better. I saw her shortly after arrival and she states pain already improved. She described it as coming and going and worse than labor pain. She denies any contractions, VB, LOF, PreE symptoms. Vitals: 01/09/23 2229 BP: 93/52 Pulse: 84 Resp: 16 Temp: 36.7 C (98 F) Alert and oriented, appears uncomfortable Gravid nontender abdominal fundus. +flank tenderness Declines pelvic exam Creatinine normal Plan: S/p urology consult- no surgical intervention at this time Clinical course highly suspicious for nephrolithiasis. IVF and Flomax. Observe for improvement. Patient is Mennonite and desires minimal intervention- declines labs/glucola, is agreeable to 20min NST only. 30 minutes spent in total floor time today for review of records, patient interview and exam, documentation and coordination of care with care teams. Petty Mcbride MD [facility] 01-09-2023 History and physical note Department of Maternal Medicine History and Physical CHIEF COMPLAINT: Left flank pain HISTORY OF PRESENT ILLNESS: The patient is a 32 y.o. female at 31w1d. OB History 5 Para 3 Term 3 AB 1 Living 3 SAB 1 IAB Ectopic Multiple Live Births 3 Patient presents with a chief complaint as above and is being admitted for left flank pain and concern for possible nephrolithiasis with or without obstruction. She presented to [place] with severe left flank pain that started around midnight. She states that it is worse than labor. Denies DFM, VB, LOF or Ctx. Transport: Yes , [place] Prior Hospitalizations: No Estimated Due Date: Estimated Date of Delivery: 03/12/23 CARE: Complications: See below PAST OB HISTORY: OB History 5 Para 3 Term 3 AB 1 Living 3 SAB 1 IAB Ectopic Multiple Live Births 3 Detailed OB History TSVD TSVD TSVD SAB Current Past Medical History: History reviewed. No pertinent past medical history. Past Surgical History: History reviewed. No pertinent surgical history. Allergies: Patient has no known allergies. Social History: Social History Socioeconomic History Marital status: Spouse name: sterling Number of children: 3 Years of education: Not on file Highest education level: Not on file Occupational History Not on file Tobacco Use Smoking status: Not on file Smokeless tobacco: Never Vaping Use Vaping Use: Never used Substance and Sexual Activity Alcohol use: Never Drug use: Never Sexual activity: Not on file Other Topics Concern Not on file Social History Narrative Not on file Social Determinants of Health Financial Resource Strain: Not on file Food Insecurity: Not on file Transportation Needs: No Transportation Needs Lack of Transportation (Medical): No Lack of Transportation (Non-Medical): No Physical Activity: Not on file Stress: Not on file Social Connections: Not on file Intimate Partner Violence: Not on file Housing Stability: Not on file Family History: No family history on file. Medications Prior to Admission: No medications prior to admission. REVIEW OF SYSTEMS: Review of Systems Constitutional: Negative for chills and fever. Respiratory: Negative for shortness of breath. Gastrointestinal: Negative for abdominal pain, nausea and vomiting. Genitourinary: Positive for flank pain. Negative for dysuria, hematuria, menstrual problem and urgency. Neurological: Negative for dizziness and light-headedness. Labs: NA PHYSICAL EXAM: Vitals: 01/09/23 1407 Temp: 37 C (98.6 F) TempSrc: Oral Weight: 190 lb (86.2 kg) Height: 5' 6 (1.676 m) General appearance: awake, alert, cooperative, no apparent distress, and appears stated age Neurologic: Awake, alert, oriented to name, place and time. Lungs: No increased work of breathing, good air exchange Abdomen: Soft, non tender, gravid, consistent with her gestational age Patient declines SVE/SSE on admission ASSESSMENT AND PLAN: LABOR DELIVERY ??? SCD's ONLY (labor through ambulation) SCD's PLUS Prophylactic Anticoagulation until discharge SCD's PLUS Prophylactic Anticoagulation for 6 weeks SCD's PLUS Therapeutic Anticoagulation for 6 weeks Vaginal Delivery [] BMI ? 40 kg/m2 Delivery All patients Vaginal Delivery [] BMI ? 40 kg/m2 AND [] Antepartum hospitalization ? 72 hours within the past month Delivery 1 Major Risk Factor: [] BMI ? 35 kg/m2 [] Low Risk Thrombophilia [] PPH+RBCs, IR, or operation [] Infection+Antibiotics [] Antepartum hospitalization ? 72 hours within the past month [] PMH: Sickle Cell, SLE, Cardiac Dz, Active IBD, Active Cancer, Nephrotic Syndrome OR 2 Minor Risk Factors: [] Multiple gestation [] Age > 40 [] PPH ? 1,000cc [] (+)FMH of VTE [] Smoker [] Preeclampsia [] BMI ? 40 kg/m2 AND [] Low Risk Thrombophilia OR ANY OF THE FOLLOWING: [] High Risk Thrombophilia without prior VTE [] Low Risk Thrombophilia with (+)FMH of VTE [] Any single prior VTE ANY OF THE FOLLOWING: [] Already on LMWH/UFH [] Multiple prior VTE [] High Risk Thrombophilia with prior VTE Low Risk Thrombophilia: FVL (heterozygous), Prothrombin (heterozygous), Protein C, Protein S High Risk Thrombophilia: FVL (homozygous), Prothrombin (homozygous), FVL+Prothrombin (heterozygous), Antithrombin III, APLS VTE Prophylaxis: Not Indicated Admission: Admit to Antepartum (PNU) FHR: FHR in 140s on admission declining monitoring, heart monitoring NST daily Labs: GBS ordered, but not yet obtained GC/CT ordered, but not yet obtained Urine collected FFN not obtained Type&Screen collected Serum Labs Consults: urology Imaging: Not indicated Diet: General Testing: TBD Timing and Route of Delivery: TBD Medications: Neuroprotection Not indicated Tocolysis Not indicated Antibiotics Not indicated Steroids: Betamethasone - not indicated Left flank pain Possible nephrolithiasis with obstruction Moderate left hydronephrosis -Transferred from [place] for severe left flank pain that started last night, concern for nephrolithiasis causing obstruction on US at outside facility and transferred here for urology recommendations -Her pain is better controlled since arriving to our facility -PRN oxycodone for pain -Flomax daily, IVF running -Urology consulted and following, appreciate recs -Plan for CT scan if pain worsens or if unchanged with IVF and Flomax No care -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 Mcbride, who agrees with plan. DEB CASTELLON DO 01/09/2023, 2:26 PM Cc: Petty Mcbride MD Associated attestation - Petty Mcbride MD - 01/10/2023 3:29 PM EST MFM ATTENDING I have personally obtained a history and examined the patient with Dr. Castellon. I agree with the assessment and plan as documented in the resident's note. The patient is a 32 y.o. 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 There she had a RP ultrasound demonstrated left hydronephrosis and concern for left ureteral obstruction. Given her GA and she was transferred to [facility] for urology consultation. In pavilion her labs were normal and testing and ultrasound normal (had not had previously). She declined pelvic exam. Upon arrival to [facility] she was already feeling better. I saw her shortly after arrival and she states pain already improved. She described it as coming and going and worse than labor pain. She denies any contractions, VB, LOF, PreE symptoms. Vitals: 01/09/23 2229 BP: 93/52 Pulse: 84 Resp: 16 Temp: 36.7 C (98 F) Alert and oriented, appears uncomfortable Gravid nontender abdominal fundus. +flank tenderness Declines pelvic exam Creatinine normal Plan: S/p urology consult- no surgical intervention at this time Clinical course highly suspicious for nephrolithiasis. IVF and Flomax. Observe for improvement. Patient is Mennonite and desires minimal intervention- declines labs/glucola, is agreeable to 20min NST only. 30 minutes spent in total floor time today for review of records, patient interview and exam, documentation and coordination of care with care teams. Petty Mcbride MD documented in this encounter [facility] 01-09-2023 Miscellaneous Notes Formattin g of this note might be different from the original. Report given to transport team. Patient leaves out of unit via stretcher with ambulance squad and . Patient states she sees Laura Hernandez a knit goods washer and plans to deliver at home with this . Patient is refusing TOCO. Patient agreed to have external US on. US to bedside now. Dr. De La Rosa on unit updated with POC orders from Dr. Jeffries and patients refusal of certain orders. POC reviewed with patient. Patient is refusing IV insertion, SVE and ATB at this time. Patients states she would rather see what the results of the renal US show before taking ATB. Called Dr. Jeffries with c/o left lower back pain that radiates up crying stating pain is 10/10. Denies any history of kidney stones. UA results given to provider. Orders received. Will call Dr. De La Rosa with results. Report given to Sarah COMBS Pt arrives to unit via wheelchair with complaint of Lower back pain. Pt is a and is 31w1d. Rates her pain a 10 on a scale of 0-10. Denies any vaginal bleeding. Oriented to room and plan of care. Up to bathroom to change into gown. documented in this encounter [facility] 01-09-2023 Note Formatting of this n ote might be different from the original. Report given to transport team. Patient leaves out of unit via stretcher with ambulance squad and . [facility] 01-09-2023 History and physical note OBSTETRIC HISTORY AND PHYSICAL FACILITY: [facility] Name: Dominique Azar Date of : 1990 CSN: [id number] Chief Complaint: Left flank pain History of present illness Dominique Azar is a 32 y.o. female with Estimated Date of Delivery: 03/12/23 currently at 31w1d gestation who presents for back pain that started around midnight. It comes and goes but is severe, rating 10/10. Not worsening or improving, colicky in nature. Denies any history of this happening before. Denies any urologic issues in the past including stones, pyelo, etc. She reports positive movement. She denies vaginal bleeding or leaking of fluid. She is not currently feeling any contractions. Patient under care of a knit goods washer, planning for home Declines panel, glucola Obstetric History OB History Para Term AB Living 5 3 3 1 SAB IAB Ectopic Molar Multiple Live Births 1 # Outcome Date GA Lbr Kermit/2nd Weight Sex Delivery Anes PTL Lv 5 Current 4 SAB 3 Term 2 Term 1 Term Past Medical History Denies Past Surgical History Denies Family History History reviewed. No pertinent family history. Social History Tobacco: Denies in this Alcohol: Denies in this Illicit drug use: Denies in this Allergies No Known Allergies Medications Current Outpatient Medications Medication Instructions MV-Min-Fe Fum-FA-DHA ( 1 PO) Oral OB Dating JOE established by 16wk Labs None available, declines ROS Constitutional: No fevers/chills. No lightheadedness or dizziness. Cardiovascular: No chest pain or palpitations. Respiratory: No shortness of breath, orthopnea, or dyspnea on exertion. Gastrointestinal: No nausea, vomiting, abdominal pain. : No nocturia, dysuria, or burning sensation on urination. Musculoskeletal: No joint pains, or myalgias. No weakness or falls. Neurological: No numbness or tingling. No paresthesias. Psychiatric: No mood swings, depression, anxiety. Physical Exam Vitals: 01/09/23 0715 BP: Pulse: 91 Temp: 98.7 F (37.1 C) Body mass index is 30.67 kg/m . GENERAL APPEARANCE: The patient is alert, in no acute distress HEENT: Normocephalic and atraumatic. Well-hydrated mucosa. HEART: No peripheral edema. LUNGS: Unlabored breathing. ABDOMEN: Soft, gravid, nontender FHT: 145/mod/+accel/-decel [place]: quiet Assessment & Plan: Dominique Azar is a 32 y.o. female with Estimated Date of Delivery: 03/12/23 currently [id number] gestation who presents for flank pain in Flank pain -Renal US with L hydronephrosis, no ureteral jet seen on that side, concern for obstruction -No inpatient urology at this facility, needs urologic eval -UA normal with exception of leuk est, trace blood -Labs normal, no WBC count, Cr normal care -Has not had an US since 16 weeks, US today wnl, BPP 8/8, tracing reactive -Declines panel, glucola -Care under Laura Hernandez, Customer Acquisition Specialist -No contractions noted, patient declines CE Dispo: Discussed with Dr. Lyon Muna, agreeable to transport this patient to [facility] for further evaluation/care Marcy De La Rosa MD 01/09/2023 10:10 AM [facility] Work Phone: 01-09-2023 History and physical note OBSTETRIC HISTORY AND PHYSICAL FACILITY: [facility] Name: Dominique Azar Date of : 1990 CSN: [id number] Chief Complaint: Left flank pain History of present illness Dominique Azar is a 32 y.o. female with Estimated Date of Delivery: 03/12/23 currently at 31w1d gestation who presents for back pain that started around midnight. It comes and goes but is severe, rating 10/10. Not worsening or improving, colicky in nature. Denies any history of this happening before. Denies any urologic issues in the past including stones, pyelo, etc. She reports positive movement. She denies vaginal bleeding or leaking of fluid. She is not currently feeling any contractions. Patient under care of a knit goods washer, planning for home Declines panel, glucola Obstetric History OB History Para Term AB Living 5 3 3 1 SAB IAB Ectopic Molar Multiple Live Births 1 # Outcome Date GA Lbr Kermit/2nd Weight Sex Delivery Anes PTL Lv 5 Current 4 SAB 3 Term 2 Term 1 Term Past Medical History Denies Past Surgical History Denies Family History History reviewed. No pertinent family history. Social History Tobacco: Denies in this Alcohol: Denies in this Illicit drug use: Denies in this Allergies No Known Allergies Medications Current Outpatient Medications Medication Instructions MV-Min-Fe Fum-FA-DHA ( 1 PO) Oral OB Dating JOE established by 16wk US Labs None available, declines ROS Constitutional: No fevers/chills. No lightheadedness or dizziness. Cardiovascular: No chest pain or palpitations. Respiratory: No shortness of breath, orthopnea, or dyspnea on exertion. Gastrointestinal: No nausea, vomiting, abdominal pain. : No nocturia, dysuria, or burning sensation on urination. Musculoskeletal: No joint pains, or myalgias. No weakness or falls. Neurological: No numbness or tingling. No paresthesias. Psychiatric: No mood swings, depression, anxiety. Physical Exam Vitals: 01/09/23 0715 BP: Pulse: 91 Temp: 98.7 F (37.1 C) Body mass index is 30.67 kg/m . GENERAL APPEARANCE: The patient is alert, in no acute distress HEENT: Normocephalic and atraumatic. Well-hydrated mucosa. HEART: No peripheral edema. LUNGS: Unlabored breathing. ABDOMEN: Soft, gravid, nontender FHT: 145/mod/+accel/-decel [place]: quiet Assessment & Plan: Dominique Azar is a 32 y.o. female with Estimated Date of Delivery: 03/12/23 currently [id number] gestation who presents for flank pain in Flank pain -Renal US with L hydronephrosis, no ureteral jet seen on that side, concern for obstruction -No inpatient urology at this facility, needs urologic eval -UA normal with exception of leuk est, trace blood -Labs normal, no WBC count, Cr normal care -Has not had an US since 16 weeks, US today wnl, BPP 8/8, tracing reactive -Declines panel, glucola -Care under Laura Hernandez, Customer Acquisition Specialist -No contractions noted, patient declines CE Dispo: Discussed with Dr. Lyon [facility], agreeable to transport this patient to [facility] for further evaluation/care Marcy De La Rosa MD 01/09/2023 10:10 AM documented in this encounter [facility] 01-09-2023 Note Formatting of this n ote might be different from the original. Patient states she sees Laura Hernandez a knit goods washer and plans to deliver at home with this . [facility] 01-09-2023 Note Formatting of this n ote might be different from the original. Patient is refusing TOCO. Patient agreed to have external US on. US to bedside now. Dr. De La Rosa on unit updated with POC orders from Dr. Jeffries and patients refusal of certain orders. [facility] 01-09-2023 Note Formatting of this n ote might be different from the original. POC reviewed with patient. Patient is refusing IV insertion, SVE and ATB at this time. Patients states she would rather see what the results of the renal US show before taking ATB. [facility] 01-09-2023 Note Formatting of this n ote might be different from the original. Called Dr. Jeffries with c/o left lower back pain that radiates up crying stating pain is 10/10. Denies any history of kidney stones. UA results given to provider. Orders received. Will call Dr. De La Rosa with results. [facility] 01-09-2023 Note Formatting of this n ote might be different from the original. Report given to Sarah COMBS [facility] 01-09-2023 Note Formatting of this n ote might be different from the original. Pt arrives to unit via wheelchair with complaint of Lower back pain. Pt is a and is [id number]. Rates her pain a 10 on a scale of 0-10. Denies any vaginal bleeding. Oriented to room and plan of care. Up to bathroom to change into gown. [facility] Evaluation note Diagnosis Nephrolithiasis- Primary Calculus of kidney documented in this encounter [facility] Summary Purpose Family History No Family History Records FoundNo Family History Records FoundNo Family History Records Found Advance Directives Latest Code Status on File Code Status Date Activated Date Inactivated Comments Full Code 01/09/2023 2:24 PM 01/10/2023 10:58 AM Reason for Referral Specialty Diagnoses / Procedures Referred By Contac t Referred To Contact Procedures US OB GROWTH/DATING > 14WEEKS Rhodna Jeffries MD [address] [place] [address] Referral ID Status Reason Start Date Expiration Date Visits Re quested Visits Authorized [id number] Closed 01/09/2023 02/03/2024 1 1 Specialty Diagnoses / Procedures Referred By Contac t Referred To Contact Procedures US OB BIOPHYSICAL PROF WITH NST Rhonda Jeffries MD [address] [place] [address] Referral ID Status Reason Start Date Expiration Date Visits Re quested Visits Authorized [id number] Closed 01/09/2023 02/03/2024 1 1 Specialty Diagnoses / Procedures Referred By Contac t Referred To Contact Procedures US RENAL RETROPERITONEAL Rhonda Jeffries MD [address] [place] [address] Referral ID Status Reason Start Date Expiration Date Visits Re quested Visits Authorized [id number] Closed 01/09/2023 02/03/2024 1 1 Additional Source Comments INFORMATION SOURCE (unrecogn ized section and content) DATE CREATED AUTHOR 03/23/2022 [facility] DATE CREATED AUTHOR AUTHOR'S ORGANIZ ATION 01/12/2023 [facility] DATE CREATED AUTHOR AUTHOR'S ORGANIZ ATION 01/12/[address] [facility] Reason for Visit (unrecogniz ed section and content) Reason Comments Lower Back Pain Left sided back pain . Pt states hurts to take a deep breath Reason Comments Abdominal Pain On the left side, st arted @ 12am. Specialty Diagnoses / Procedures Referred By Esme navarro Referred To Contact Diagnoses Nephrolithiasis Procedures n20.0 Petty Mcbride MD [address] [place] [address] [facility] [address] [place] [address] Referral ID Status Reason Start Date Expiration Date Visits Re quested Visits Authorized [id number] 1 1 Scheduled Active and Recently Administ ered Medications (unrecognized section and content) Medication Order 01/07/2023 01/08/2023 01/09/2023 cefTRIAXone (ROCEPHIN) 1 g in sodium chloride 0.9% (MB PLUS) 50 mL (total volume) IVPB 1 g, Intravenous, Administer over 30 Minutes, ONCE, 1 dose, On Sat01/09/23 at 0815 0815 (Canceled Entry - Provider: System Discharge - Comment: Automatically canceled at discontinue of medication order) Cyclobenzaprine (FLEXERIL) tablet 10 mg (COMPLETED) 10 mg, Oral, ONCE, 1 dose, On Sat01/09/23 at 0815 0839 (Given - Provid er: Sarah Sinha RN) Morphine sulfate (PF) injection 4 mg (COMPLETED) 4 mg, Intravenous, ONCE, 1 dose, On Sat01/09/23 at 1045 1020 (Given - Provid er: Sarah Sinha RN) Scheduled Medication Order 01/08/2023 01/09/2023 01/10/2023 vitamin tablet 1 tablet, Oral, Daily, First dose on Sat01/09/23 at 1430 1430 (Not Given - Provider: Lucero Lyle RN - Reason: Contraindicated) 0900 (Canceled Entry - Provider: Automatic Discharge Provider - Comment: Automatically canceled at discontinue of medication order) sodium chloride 0.9% (NS) flush 10 mL 10 mL, IntraVENous, Every 12 hours scheduled (2 times per day), First dose on Sat01/09/23 at 2100 2100 (Canceled Entry - Provider: Automatic Discharge Provider - Comment: Automatically canceled at discontinue of medication order) 0900 (Canceled Entry - Provider: Automatic Discharge Provider - Comment: Automatically canceled at discontinue of medication order) tamsulosin (Flomax) 24 hr capsule 0.4 mg 0.4 mg, Oral, Daily, First dose on Sat01/09/23 at 1530, Do not crush, chew, or split. 1657 (Given - Provider: Lucero Lyle RN) 0900 (Canceled Entry - Provider: Automatic Discharge Provider - Comment: Automatically canceled at discontinue of medication order) Continuous Medication Order 01/08/2023 01/09/2023 01/10/2023 lactated Ringer's infusion 125 mL/hr, IntraVENous, Continuous, Starting on Sat01/09/23 at 1445 1446 (New Bag - Provider: Flaca Rodriguez RN) PRN Medication Order 01/08/2023 01/09/2023 01/10/2023 acetaminophen (Tylenol) tablet 650 mg 650 mg, Oral, Every 4 hours PRN, mild pain (1-3), Fever GREATER than 100.5 F (38 C), Starting on Sat01/09/23 at 1411, Maximum dose of acetaminophen is 4000 mg from all sources in 24 hours. ondansetron (Zofran) injection 4 mg(Linked Group 1) 4 mg, IntraVENous, Every 6 hours PRN, nausea, vomiting, Starting on Sat01/09/23 at 1411, 1st Line. Give IV if patient is unable to take orally. If inadequate response within 60 minutes, proceed to next-line agent or contact provider if no further options ordered. ondansetron ODT (Zofran-ODT) disintegrating tablet 4 mg(Linked Group 1) 4 mg, Oral, Every 8 hours PRN, nausea, vomiting, Starting on Sat01/09/23 at 1411, 1st Line. If inadequate response within 60 minutes, proceed to next-line agent or contact provider if no further options ordered. Patient should allow tablet to dissolve on tongue. Do not remove from blister pack until just before administering. oxyCODONE (Roxicodone) immediate release tablet 5 mg 5 mg, Oral, Every 6 hours PRN, mild pain (1-3), moderate pain (4-6), Starting on Sat01/09/23 at 1554 1920 (Given - Provider: Chantell Smith RN) sodium chloride 0.9 % infusion 5-250 mL/hr, IntraVENous, PRN, if patient receiving piggyback infusions and maintenance fluids are not ordered OR KVO fluids to protect IV site / prevent frequent line interruptions/ long duration, Starting on Sat01/09/23 at 1411, For piggyback infusion, administer at same rate as piggyback for a total of 25 mL. Enter 25 mL into dose field and piggyback rate into rate field of order. If piggyback is infusing at a rate less than 100 mL/hr, enter 25 mL into dose field and 100 mL/hr into rate field of order. For KVO fluids, enter rate of 20 mL/hr or less into rate field of order. sodium chloride 0.9% (NS) flush 10 mL 10 mL, IntraVENous, PRN, line care, Starting on Sat01/09/23 at 1411, After every IV line use Linked Groups Order Group 1: ondansetron ODT (Zofran-ODT) disintegrating tablet 4 mgJump to med 4 mg, Oral, Every 8 hours PRN, nausea, vomiting, Starting on Sat01/09/23 at 1411
1st Line. If inadequate response within 60 minutes, proceed to next-line agent or contact provider if no further options ordered. Patient should allow tablet to dissolve on tongue. Do not remove from blister pack until just before administering.
Or ondansetron (Zofran) injection 4 mgJump to med 4 mg, IntraVENous, Every 6 hours PRN, nausea, vomiting, Starting on Sat01/09/23 at 1411
1st Line. Give IV if patient is unable to take orally. If inadequate response within 60 minutes, proceed to next-line agent or contact provider if no further options ordered.
Care Teams (unrecognized sec tion and content) Product Assembler Relationship Specialty Start Date End Date Aye Mazariegos PA [address] [place] [address] PCP - General Physician Superintendent [employer] 01/09/23 FOR RECORDS PERTAINING TO PATIENTS WHO ARE OR HAVE BEEN ENROLLED IN A CHEMICAL DEPENDENCY/SUBSTANCEABUSE PROGRAM, SOME INFORMATION MAY BE OMITTED. This clinical summary was aggregated from multiple sources. Caution should be exercised in using it in the provision of clinical care. This summary normalizes information from multiple sources, and as a consequence, information in this document may materially change the coding, format and clinical context of patient data. In addition, data may be omitted in some cases. CLINICAL DECISIONS SHOULD BE BASED ON THE PRIMARY CLINICAL RECORDS. [facility]. provides no warranty or guarantee of the accuracy or completeness of information in this document.
[2025-04-25 05:51] VITALS: BP 105/60; PULSE 100; RESP 19; TEMP 36.7; O2SAT 98
[2025-04-25 06:08] LABS: Color, Urine Yellow (Yellow); Glucose, Dipstick Normal (Normal); Ketone-Dipstick Negative (Negative); Leukocyte Esterase-Dipstick 100 /ul (Negative); Nitrite-Dipstick Negative (Negative); Occult Blood-Urine 25 /ul (Negative); Protein-Dipstick 30 mg/dl (Negative); Urine Bilirubin Dipstick Negative (Negative); Urine Clarity Clear (Clear); Urine Urobilinogen Normal (Normal)
[2025-04-25] MEDS: Phenazopyridine 95 MG Tablet 190 MG PO ×2 (06:59→07:34)
[2025-04-25] MEDS: Nitrofurantoin Macrocrystals 100 MG Capsule PO (07:34)
--- NOTE | 2025-04-25 07:41 | NURSING ---
Pt refusing to let RN get FHR on babe or place on monitor. Would only take PO meds for UTI. Denies any further questions. Agrees to follow up with PCP in 1 week.
--- NOTE | 2025-04-26 09:51 | OB.TRI.HP_ITS ---
HPI - General General Date of Admission: 04/25/25 Date of Service: 04/25/25 HPI Narrative GEOVANNY SOSA, is a 34 F who presents to labor and delivery with complaints of lower abdominal discomfort. She denies a cervical check, monitoring baby with toco, or even listing to heart tones with a Doppler. She sees a bricklayer paving brick for her care. During her last she indicates that she was given Flomax for similar symptoms which helped. She is requesting this prescription be given to her so she can go home. UA was sent and suggestive of a possible urinary tract infection. PFSH PFSH Home Medications ?Medication ?Instructions ?Recorded ?Last Taken ?Type vits,calcium no.78-iron 1 tab PO DAILY pregna ncy 12/28/19 12/27/19 18:00 History fumarate-folic acid 29 mg-1 mg 1 tab tablet tranexamic acid 650 mg tablet 650 mg PO BID PRN [place] 01/29/22 Unknown Rx bleeding #10 tabs Allergy/AdvReac Type Severity Reaction Status Date / Time No Known Allergies Allergy Verified 04/25/25 06:00 Surgical History no surgical history Social History Smoking Status: Never smoker History Elective abortions Hx Para 2 Spontaneous abortions Hx # Term Pregnancies Ectopic pregnancies Hx # Pregnancies Multiple births # of living children Assessment & Plan (1) Urinary tract infection affecting care of mother in second trimester, antepartum: PLAN: UA suggestive of urinary tract infection. Patient does not allow further evaluation. Prescription given for Macrobid 100 mg twice daily for 7 days and Pyridium 200 mg 3 times daily for 3 days. Called to [facility] in [place]. Patient instructed to return if symptoms do not resolve within 1 to 3 days or if she has vaginal bleeding or other symptoms of labor.
== END 2025-04-25 07:40 | disposition home or self-care (01) ==
LOC: WPOUT 05:44 → WP 05:45
PROVIDERS: PCP Physician Assistant; Visit Provider Obstetrics & Gynecology
DX: O23.42 Unspecified infection of urinary tract in pregnancy, second trimester (principal); Z3A.00 Weeks of gestation of pregnancy not specified
CPT/HCPCS: 81002; 87086; 87088; 99221; G0378